=== PATIENT | female | born 1945 | race Hispanic/Latino ===

== ENCOUNTER 2018-05-21 21:59 | Emergency (ER) | payer MEDICARE, BC ==
[2018-05-21 22:03] VITALS: BMI 21.9
--- NOTE | 2018-05-21 22:37 | ED PDOC ---
Arrival/HPI - General Chief Complaint: Seizure Time Seen by Provider: 05/21/18 22:03 Historian: Patient - History of Present Illness Narrative History of Present Illness (Text): 05/21/18 22:03 Patient is a 72 year old female with a past medical history of seizure, hyperlipidemia, hypertension, A-fib, hyperthyroidism, anxiety, and bipolar disorder who presents from [facility] to the Emergency department after multiple seizures. Patient was sent by PMD for futher evaluation. The patient denies fevers, chills, headache, dizziness, chest pain, shortness of breath, dyspnea on exertion, cough, abdominal pain, nausea, vomiting, diarrhea, or any other complaint. Time/Duration: Prior to Arrival Symptom Onset: Sudden Activities at Onset: Light Context: Home (halfway) Past Medical History - Provider Review Nursing Documentation Reviewed: Yes - Infectious Disease Hx of Infectious Diseases: None - Cardiac Hx Cardiac Arrhythmia: Yes Hx Hypertension: Yes - Endocrine/Metabolic Hx Hyperthyroidism: Yes Hx Hypothyroidism: Yes - Musculoskeletal/Rheumatological Hx Osteoporosis: Yes - Psychiatric Hx Anxiety: Yes Hx Substance Use: No Family/Social History - Physician Review Nursing Documentation Reviewed: Yes Family/Social History: Unknown Family HX Smoking Status: Never Smoked Hx Alcohol Use: No Hx Substance Use: No Allergies/Home Meds Allergies/Adverse Reactions: Allergies No Known Allergies Allergy (Verified 05/21/18 22:02) Home Medications: Home Meds Medication Instructions Recorded Confirmed Brivaracetam [Briviact] 1 tab PO TID 05/21/18 05/21/18 Brivaracetam [Briviact] 100 mg PO HS 05/21/18 05/21/18 LORazepam [Ativan] 1 tab PO QID 05/21/18 05/21/18 Levothyroxine [Synthroid] 1 tab PO DAILY 05/21/18 05/21/18 OLANZapine [Zyprexa] 1 tab PO BID 05/21/18 05/21/18 Raloxifene [Evista] 1 tab PO DAILY 05/21/18 05/21/18 Rosuvastatin Calcium [Crestor] 1 tab PO HS 05/21/18 05/21/18 lamoTRIgine [Lamictal] 50 mg PO DAILY 05/21/18 05/21/18 lamoTRIgine [Lamictal] 50 mg PO HS 05/21/18 05/21/18 Review of Systems - Physician Review All systems were reviewed & negative as marked: Yes - Review of Systems Constitutional: absent: Fevers, Night Sweats Cardiovascular: absent: Chest Pain Gastrointestinal: absent: Nausea, Vomiting Neurological: Seizure Physical Exam Temperature: Afebrile Blood Pressure: Normal Pulse: Regular Respiratory Rate: Normal Appearance: Positive for: Well-Appearing, Non-Toxic, Comfortable Pain Distress: None Mental Status: Positive for: Alert and Oriented X 3 Finger Stick Blood Glucose: 96 - Systems Exam Head: Present: Atraumatic, Normocephalic Pupils: Present: PERRL Extroacular Muscles: Present: EOMI Conjunctiva: Present: Normal Mouth: Present: Moist Mucous Membranes Neck: Present: Normal Range of Motion Respiratory/Chest: Present: Clear to Auscultation, Good Air Exchange. No: Respiratory Distress, Accessory Muscle Use Cardiovascular: Present: Regular Rate and Rhythm, Normal S1, S2. No: Murmurs Abdomen: No: Tenderness, Distention, Peritoneal Signs Back: Present: Normal Inspection Upper Extremity: Present: Normal Inspection. No: Cyanosis, Edema Lower Extremity: Present: Normal Inspection. No: Edema Neurological: Present: GCS=15, CN II-XII Intact, Speech Normal Skin: Present: Warm, Dry, Normal Color. No: Rashes Psychiatric: Present: Alert, Oriented x 3, Normal Insight, Normal Concentration Medical Decision Making ED Course and Treatment: 05/21/18 22:03 Impression: Patient is a 72 year old female who presents to the Emergency department from her [facility] after seizure and altered mental status. Plan: -- CT Head W/O Contrast -- EKG -- Labs -- Reassess and disposition Prior Visits: Notes and results from previous visits were reviewed. Progress Notes: Reviewed EKG NSR [address]-segment elevations or depressions, no T-wave inversions, normal intervals. 05/22/18 00:25 CT Head: BRAIN There is mild cortical and moderate cerebellar atrophy. No evidence for mass or midline shift. No CT evidence for acute intracranial hemorrhage. VENTRICLES: No hydrocephalus. ORBITS: The orbits are unremarkable. SINUSES AND MASTOIDS: The paranasal sinuses and mastoid air cells are clear. BONES: No fracture. SOFT TISSUES: Unremarkable. MISCELLANEOUS: No CT evidence for acute territorial infarction. IMPRESSION: 1. There is mild cortical and moderate cerebellar atrophy. 2. No CT evidence for acute intracranial abnormality. Electronically signed on May 22, 2018 12:22:07 AM EST by: Hans Osei M.D., MBA Certified By [facility] Fellowship Trained MRI and CT Specialist 05/22/18 00:54 00:[address] Hernandez, who is aware and agrees with plan. Accepts patient into his service. Pt will go to Telemetry observation for seizures. 05/22/18 01:[address] Eleni Torres, who is aware and agrees with plan. Recommends increasing patient's dose of Lamictal 100 mg twice a day. - Lab Interpretations I have reviewed the lab results: Yes - RAD Interpretation Radiology Orders: 05/21/18 22:17 HEAD W/O CONTRAST [CT] Stat Bunch Trimmer Mold: Radiologist - EKG Interpretation Interpreted by ED Physician: Yes Type: 12 lead EKG - Scribe Statement The provider has reviewed the documentation as recorded by the Kimmieibe Hans oconnell with Hoa All medical record entries made by the Scribe were at my direction and personally dictated by me. I have reviewed the chart and agree that the record accurately reflects my personal performance of the history, physical exam, medical decision making, and the department course for this patient. I have also personally directed, reviewed, and agree with the discharge instructions and disposition. Disposition/Present on Arrival - Present on Arrival Any Indicators Present on Arrival: No History of DVT/PE: No History of Uncontrolled Diabetes: No Urinary Catheter: No History of Decub. Ulcer: No History Surgical Site Infection Following: None - Disposition Have Diagnosis and Disposition been Completed?: Yes Diagnosis: Seizure Disposition: HOSPITALIZED Disposition Time: 00:45 Condition: GOOD
[2018-05-21 23:26] LABS: ALB/GLOB RATIO 1.2 (1.1-1.8); ALBUMIN 3.5 g/dL (3.0-4.8); ALT/SGPT 18 U/L (7-56); AST/SGOT 23 U/L (14-36); BLOOD UREA NITROGEN 22 mg/dL (7-21); CALCIUM 8.6 mg/dL (8.4-10.5); GFR NON-AFRICAN AMERICAN > 60
[2018-05-21 23:31] LABS: BASO # 0.02 K/mm3 (0.0-2.0); BASO % 0.2 % (0.0-3.0); EOS # 0.1 (0.0-0.7); EOS % 1.3 % (1.5-5.0); HEMOGLOBIN 11.8 g/dL (12.0-16.0); LYMPH # 2.3 (1.2-3.4); LYMPH % 27.4 % (22.0-35.0); MEAN CORPUSCULAR HEMOGLOBIN 31.7 pg (25.0-35.0); MEAN CORPUSCULAR HGB CONC 32.7 g/dl (31.0-37.0); MEAN PLATELET VOLUME 9.9 fl (7.0-11.0); MONO # 1.2 (0.1-0.6); MONO % 13.5 % (1.0-6.0); RBC 3.72 10^6/uL (3.5-6.1); WHITE BLOOD COUNT 8.5 10^3/uL (4.5-11.0)
--- NOTE | 2018-05-22 09:59 | CT ---
Date of service: 05/21/2018 PROCEDURE: CT HEAD WITHOUT CONTRAST. HISTORY: seizure COMPARISON: None available. TECHNIQUE: Axial computed tomography images were obtained through the head/brain without intravenous contrast. Radiation dose: Total exam DLP = 830.34 mGy-cm. This CT exam was performed using one or more of the following dose reduction techniques: Automated exposure control, adjustment of the mA and/or kV according to patient size, and/or use of iterative reconstruction technique. FINDINGS: HEMORRHAGE: No intracranial hemorrhage. 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 Louv-kd-cltiatxs cortical volume loss. Minor chronic periventricular white matter ischemic changes VENTRICLES: No obstructive hydrocephalus. CALVARIUM: Calvarium intact PARANASAL SINUSES: Unremarkable as visualized. No significant inflammatory changes. MASTOID AIR CELLS: Unremarkable as visualized. No inflammatory changes. 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 Layf-lb-owsinfax cortical volume loss. Minor chronic periventricular white matter ischemic changes
[2018-05-22] MEDS ORDERED: Levothyroxine 75 MCG TAB PO SCH (10:00)
[2018-05-22] MEDS ORDERED: BRIVARACETAM PO SCH ×2 (10:00→14:00)
--- NOTE | 2018-05-22 11:14 | CARD ---
APPROVED REPORT Date of service: 05/21/2018 EKG Measurement Heart [id number] <Conclusion> Normal sinus rhythm Normal ECG
[2018-05-22 14:38] VITALS: BP 131/59; PULSE 75; RESP 19; TEMP 98; O2SAT 98
--- NOTE | 2018-05-22 20:45 | HP ---
DATE OF EXAM: 05/22/2018 HISTORY OF PRESENT ILLNESS: She was placed on my service at the [facility] about a week ago. In the past week, she has had 3 to 4 seizures and she had 2 yesterday. I did not know the patient well enough to try and treat her on the outpatient. Apparently, there was adjustments by her neurologist. She is still having breakthrough seizures, reported to the [facility] emergency room. She is 72-year-old white female who is having acutely multiple seizures witnessed by the nurse at the [facility]. Also she has a history of seizures, hyperlipidemia, hypertension, atrial fibrillation, hypothyroidism, anxiety, bipolar disorder. I saw her in the emergency room, she is fairly comfortable at this time, not postictal at this time. The patient is in adjustment of her medications. She is anxious. ALLERGIES: NO KNOWN DRUG ALLERGIES. MEDICATIONS: She is on Briviact, Ativan, Synthroid, Zyprexa, , Crestor, Lamictal. She might need that updated. FAMILY HISTORY: Unknown family history. SOCIAL HISTORY: No smoker. No drinking. No drugs. REVIEW OF SYSTEMS: No acute vision or hearing changes. No sore throat. No chest pain or palpitations. No nausea, vomiting, constipation, diarrhea. No shortness of breath or cough. She move all four extremities. No skin issues that she knows of. She feels well at this time. She has had seizures. PHYSICAL EXAMINATION: VITAL SIGNS: She has a 98.6 temperature, 87 pulse, 143/96 blood pressure, came down to 141/52 blood pressure, 18 respiratory rate 100% on O2 sats on room air. HEENT: At this time, head is atraumatic, normocephalic. Extraocular muscles are intact. Throat is moist. NECK: Supple. Normal range of motion. HEART: Regular rate. Normal S1, S2. LUNGS: Decreased breath sounds. Fair inspiration. No wheezes. No rhonchi. No rales. ABDOMEN: Soft, nontender. Positive bowel sounds. No guarding. No rebound or CVA tenderness. EXTREMITIES: Have no edema. She can move all four extremities. NEUROLOGIC: GCS is 50. Cranial nerves II through XII grossly intact. Speech is normal. Tongue is midline. Alert and oriented x3. SKIN: I could tell is intact. No apparent rashes or ulcers appreciated I could see. LYMPHS: Thyroid midline. No palpable appreciable lymphadenopathy. LABORATORY DATA: She had a CAT scan of the head showed no CT evidence for acute intracranial abnormality, mild cortical moderate cerebral atrophy. She had blood test. Sodium 137, potassium 3.9, BUN 22, creatinine 0.7. GFR is greater than 60, sugar is 96, calcium 8.6, magnesium is 2.2, total bili is 0.3. AST is 23, ALT is 18, alk phos 59, total protein 6.4, albumin is 3.5, globulin 2.9. White count 8.5, hemoglobin 0.8, hematocrit 36.1, platelets of 224. IMPRESSION AND PLAN: We increased Solu-Medrol to 100 mg twice a day. She is finally doing well now. She is neurologist. If she does well today, I am thinking about possibly discharging her back [facility] the [facility]. I will see if Dr. Tam wants a test to be done. I will continue aggressive treatment and care with Manisha Taylor having multiple seizures. Natanael Hernandez DO MTDSathya
[2018-05-22] MEDS ORDERED: Non Formulary Medication (Rosuvastatin Calcium [Crestor] 1 TAB) PO SCH (22:00)
[2018-05-22] MEDS ORDERED: BRIVARACETAM 100 MG PO SCH ×2 (22:00)
--- NOTE | 2018-05-22 22:17 | CON ---
DATE: 05/22/2018 HISTORY OF PRESENT ILLNESS: This is a 72-year-old white female with past medical history of hypertension, hyperlipidemia, seizure, atrial fibrillation, hypothyroidism, anxiety, bipolar disorder. The patient came here from [facility] complaining of having seizures and brought here for further evaluation. CAT scan of the head done was negative. The patient has no tongue biting, no urinary incontinence. PAST MEDICAL HISTORY: As above. SOCIAL HISTORY: Does not smoke. Does not drink. ALLERGIES: NO KNOW DRUG ALLERGIES. HOME MEDICATIONS: Synthroid, Zyprexa, Lamictal. PHYSICAL EXAMINATION: HEENT: Normocephalic, atraumatic. NECK: Supple. NEUROLOGIC: Awake, orientated to self. Cranial nerves II to XII are tested. Pupils reactive. EOM intact. Visual field full. No facial asymmetry. Tongue midline. MOTOR EXAMINATION: Moves all the extremities equally. Tone normal. Deep tendon reflexes 1+. Both plantars downgoing. Sensory appears intact. Cerebellar gait deferred. IMPRESSION: Seizure. PLAN: We will increase the Lamictal to 100 mg p.o. twice a day and workup is on the way. Continue present medications. We will followup. Mateo Tam MD
[2018-05-23] MEDS ORDERED: Levothyroxine 75 MCG TAB PO SCH (10:00)
== END 2018-05-22 14:39 | disposition home or self-care (01) ==
LOC: ED 21:59 → ERH 05-22 00:51 → UNDOADMIN 05-22 00:51
DX: R56.9 Unspecified convulsions (principal); I10 Essential (primary) hypertension; E03.9 Hypothyroidism, unspecified; I48.91 Unspecified atrial fibrillation; E78.5 Hyperlipidemia, unspecified

== ENCOUNTER 2018-07-11 07:36 | Emergency (ER) | payer MEDICARE, BC ==
[2018-07-11 07:47] VITALS: BMI 21.7
[2018-07-11 08:48] LABS: BASO # 0.01 K/mm3 (0.0-2.0); BASO % 0.2 % (0.0-3.0); EOS # 0.1 (0.0-0.7); EOS % 1.5 % (1.5-5.0); LYMPH # 2.5 (1.2-3.4); LYMPH % 42.4 % (22.0-35.0); MEAN CELL VOLUME 96.7 fl (80.0-105.0); MEAN CORPUSCULAR HEMOGLOBIN 31.3 pg (25.0-35.0); MEAN CORPUSCULAR HGB CONC 32.3 g/dl (31.0-37.0); MONO # 0.6 (0.1-0.6); MONO % 9.9 % (1.0-6.0); RBC 4.48 10^6/uL (3.5-6.1)
[2018-07-11 09:00] LABS: ALB/GLOB RATIO 1.2 (1.1-1.8); ALBUMIN 4.2 g/dL (3.0-4.8); ALT/SGPT 8 U/L (7-56); AST/SGOT 28 U/L (14-36); BLOOD UREA NITROGEN 13 mg/dL (7-21); CALCIUM 9.5 mg/dL (8.4-10.5); GFR NON-AFRICAN AMERICAN > 60
[2018-07-11 09:10] LABS: TROPONIN I < 0.01 ng/mL
--- NOTE | 2018-07-11 09:27 | RAD ---
Date of service: 07/11/2018 HISTORY: r/o infiltrate COMPARISON: No prior. TECHNIQUE: 1 view obtained. FINDINGS: LUNGS: No active pulmonary disease. PLEURA: No significant pleural effusion identified, no pneumothorax apparent. CARDIOVASCULAR: No aortic atherosclerotic calcification present. Normal cardiac size. No pulmonary vascular congestion. OSSEOUS STRUCTURES: No significant abnormalities. VISUALIZED UPPER ABDOMEN: Normal. OTHER FINDINGS: None. IMPRESSION: No active disease.
--- NOTE | 2018-07-11 09:37 | ED PDOC ---
Arrival/HPI - General Time Seen by Provider: 07/11/18 07:38 Historian: Patient - History of Present Illness Narrative History of Present Illness (Text): 07/11/18 07:38 Collins Patel is a 72 year old female, with a history of intractable seizures, sent by Sukh thomas to the emergency department for seizure-like symptoms for unknown time. Patient was able to respond to questions. Patient denies any chest pain, shortness of breath, headache, nausea, vomiting, diarrhea, fever, chills, cough, visual changes, tongue biting, bowel/bladder incontinence or head injury. Symptom Onset: Sudden Symptom Course: Resolved Activities at Onset: Light Context: Home Past Medical History - Provider Review Nursing Documentation Reviewed: Yes - Infectious Disease Hx of Infectious Diseases: None - Cardiac Hx Hypertension: Yes - Neurological Hx Seizures: Yes - Endocrine/Metabolic Hx Hyperthyroidism: Yes Hx Hypothyroidism: Yes - Musculoskeletal/Rheumatological Hx Osteoporosis: Yes - Psychiatric Hx Anxiety: Yes Hx Bipolar Disorder: Yes Hx Substance Use: No - Anesthesia Hx Anesthesia: No Family/Social History - Physician Review Nursing Documentation Reviewed: Yes Family/Social History: No Known Family HX Smoking Status: Never Smoked Hx Alcohol Use: No Hx Substance Use: No Allergies/Home Meds Allergies/Adverse Reactions: Allergies No Known Allergies Allergy (Verified 07/11/18 15:02) Home Medications: Home Meds Medication Instructions Recorded Confirmed Aspirin [Adult Aspirin] 1 tab PO DAILY 07/11/18 07/11/18 LORazepam [Ativan] 1 tab PO PRN PRN 07/11/18 07/11/18 Lamotrigine [Lamictal] 1 tab PO BID 07/11/18 07/11/18 Levothyroxine [Synthroid] 1 tab PO DAILY 07/11/18 07/11/18 Metoprolol Tartrate [Lopressor] 1 tab PO BID 07/11/18 07/11/18 OLANZapine [Zyprexa] 1 tab PO BID 07/11/18 07/11/18 Raloxifene [Evista] 1 tab PO DAILY 07/11/18 07/11/18 Rosuvastatin Calcium [Crestor] 1 tab PO HS 07/11/18 07/11/18 lamoTRIgine [Lamictal] 1 tab PO DAILY 07/11/18 07/11/18 levETIRAcetam [Keppra] 4 tab PO TID 07/11/18 07/11/18 Review of Systems - Physician Review All systems were reviewed & negative as marked: Yes - Review of Systems Constitutional: absent: Fevers, Other (chills) Eyes: absent: Vision Changes ENT: absent: Other (tongue biting) Respiratory: absent: SOB, Cough Cardiovascular: absent: Chest Pain Gastrointestinal: absent: Diarrhea, Nausea, Vomiting, Other (bowel incontinence) Genitourinary Female: absent: Other (bladder incontinence) Musculoskeletal: absent: Other (head injury) Neurological: absent: Headache Physical Exam Vital Signs Reviewed: Yes Temperature: Afebrile Blood Pressure: Hypertensive Pulse: Regular Respiratory Rate: Normal Appearance: Positive for: Well-Appearing, Non-Toxic, Comfortable Pain Distress: None Mental Status: Positive for: Alert and Oriented X 3 - Systems Exam Head: Present: Atraumatic, Normocephalic Pupils: Present: PERRL Extroacular Muscles: Present: EOMI Conjunctiva: Present: Normal Mouth: Present: Moist Mucous Membranes, Normal Tounge Neck: Present: Normal Range of Motion Respiratory/Chest: Present: Clear to Auscultation, Good Air Exchange. No: Respiratory Distress, Accessory Muscle Use Cardiovascular: Present: Regular Rate and Rhythm, Normal S1, S2. No: Murmurs Abdomen: No: Tenderness, Distention, Peritoneal Signs Rectal: No: Other (no bowel incontinence) Genitourinary/Pelvic Exam: No: Other (no urinary incontinence) Back: Present: Normal Inspection Upper Extremity: Present: Normal Inspection. No: Cyanosis, Edema Lower Extremity: Present: Normal Inspection. No: Edema Neurological: Present: GCS=15, CN II-XII Intact, Speech Normal Skin: Present: Warm, Dry, Normal Color. No: Rashes Psychiatric: Present: Alert, Oriented x 3, Normal Insight, Normal Concentration Medical Decision Making ED Course and Treatment: 07/11/18 09:39 Impression: Patient is a 72 year old female brought by [facility] to the emergency department for seizure like symptoms since an unknown time. Patient denies fever or vomiting. Exam is unremarkable. Plan: -- EKG -- Chest X-Ray -- Urine Culture -- Urinalysis -- Urinary Cath -- Labs -- Reassess and disposition Prior Visits: Notes and results from previous visits were reviewed. Progress Notes: 07/11/18 09:[address] Hernandez. Pt to return to halfway and medications will be adjusted. - Lab Interpretations Lab Results: Troponin I < 0.01 ng/mL 07/11/18 08:04 Total Bilirubin 0.5 mg/dL (0.2-1.3) 07/11/18 08:04 AST 28 U/L (14-36) 07/11/18 08:04 ALT 8 U/L (7-56) 07/11/18 08:04 Alkaline Phosphatase 64 U/L (38-126) 07/11/18 08:04 Total Protein 7.9 g/dL (5.8-8.3) 07/11/18 08:04 Albumin 4.2 g/dL (3.0-4.8) 07/11/18 08:04 Globulin 3.6 gm/dL 07/11/18 08:04 Albumin/Globulin Ratio 1.2 (1.1-1.8) 07/11/18 08:04 - RAD Interpretation Narrative RAD Interpretations (Text): 07/11/18 09:23 Reviewed Chest X-Ray, shows: FINDINGS: LUNGS: No active pulmonary disease. PLEURA: No significant pleural effusion identified, no pneumothorax apparent. CARDIOVASCULAR: No aortic atherosclerotic calcification present. Normal cardiac size. No pulmonary vascular congestion. OSSEOUS STRUCTURES: No significant abnormalities. VISUALIZED UPPER ABDOMEN: Normal. OTHER FINDINGS: None. IMPRESSION: No active disease. Radiology Orders: 07/11/18 07:48 CHEST PORTABLE [RAD] Stat Junior Automation Engineer: Radiologist - Scribe Statement The provider has reviewed the documentation as recorded by the Scribe Hans Paula All medical record entries made by the Kimmieibben were at my direction and personally dictated by me. I have reviewed the chart and agree that the record accurately reflects my personal performance of the history, physical exam, medical decision making, and the department course for this patient. I have also personally directed, reviewed, and agree with the discharge instructions and disposition. Disposition/Present on Arrival - Present on Arrival Any Indicators Present on Arrival: No History of DVT/PE: No History of Uncontrolled Diabetes: No Urinary Catheter: No History Surgical Site Infection Following: None - Disposition Have Diagnosis and Disposition been Completed?: Yes Diagnosis: Seizure Disposition: HOME/ ROUTINE Disposition Time: 09:20 Condition: GOOD Discharge Instructions (ExitCare): Seizures, Adult (DC) Additional Instructions: COLLINS PATEL, thank you for letting us take care of you today. The emergency medical care you received today was directed at your acute symptoms. If you were prescribed any medication, please fill it and take as directed. It may take several days for your symptoms to resolve. Return to the Emergency Department if your symptoms worsen, do not improve, or if you have any other problems. Please contact your doctor or call one of the physicians/clinics you have been referred to that are listed on the Patient Visit Information form that is included in your discharge packet. Bring any paperwork you were given at discharge with you along with any medications you are taking to your follow up visit. Our treatment cannot replace ongoing medical care by a primary care provider outside of the emergency department. Thank you for allowing the [facility] team to be part of your care today. Dr. Hernandez will follow up with the patient this week and will adjust her medication. Referrals: Natanael Hernandez, DO [Primary Care Provider] - Follow up with primary Forms: [employer] (Citizen Of [place])
--- NOTE | 2018-07-11 09:40 | CARD ---
APPROVED REPORT Date of service: 07/11/2018 EKG Measurement Heart [id number] <Conclusion> Normal sinus rhythm Normal ECG
[2018-07-11 09:43] VITALS: TEMP 98.6
[2018-07-11 11:38] VITALS: BP 143/72; PULSE 72; RESP 17; O2SAT 97
== END 2018-07-11 11:37 | disposition home or self-care (01) ==
LOC: ED 07:36
DX: R56.9 Unspecified convulsions (principal); I10 Essential (primary) hypertension

== ENCOUNTER 2018-07-11 14:57 | Observation (INO) | payer MEDICARE, BC ==
[2018-07-11 14:58] VITALS: BMI 21.7
--- NOTE | 2018-07-11 15:25 | ED PDOC ---
Arrival/HPI - General Chief Complaint: Seizure Historian: Patient - History of Present Illness Narrative History of Present Illness (Text): 07/11/18 15:24 Manisha Taylor is a 72 year old female, with a history of intractable seizures, who returns to the emergency department sent by the [facility] for possible seizure-like behavior for unknown time. Patient was given Ativan 1mg by mouth prior to arrival. Patient is resting comfortably in the ER with no seizure-like movements noted. Patient denies any vomiting, chest pain, shortness of breath, headache, nausea, vomiting, diarrhea, fever, chills, cough, visual changes, tongue biting, bowel/bladder incontinence or head injury. Symptom Onset: Sudden Symptom Course: Resolved Activities at Onset: Light Context: Home Past Medical History - Provider Review Nursing Documentation Reviewed: Yes - Infectious Disease Hx of Infectious Diseases: None - Cardiac Hx Hypertension: Yes - Neurological Hx Seizures: Yes - Endocrine/Metabolic Hx Hyperthyroidism: Yes Hx Hypothyroidism: Yes - Musculoskeletal/Rheumatological Hx Osteoporosis: Yes - Psychiatric Hx Anxiety: Yes Hx Bipolar Disorder: Yes Hx Substance Use: No - Anesthesia Hx Anesthesia: No Family/Social History - Physician Review Nursing Documentation Reviewed: Yes Family/Social History: Unknown Family HX Smoking Status: Never Smoked Hx Alcohol Use: No Hx Substance Use: No Allergies/Home Meds Allergies/Adverse Reactions: Allergies No Known Allergies Allergy (Verified 07/11/18 15:02) Home Medications: Home Meds Medication Instructions Recorded Confirmed Aspirin [Adult Aspirin] 1 tab PO DAILY 07/11/18 07/11/18 LORazepam [Ativan] 1 tab PO PRN PRN 07/11/18 07/11/18 Lamotrigine [Lamictal] 1 tab PO BID 07/11/18 07/11/18 Levothyroxine [Synthroid] 1 tab PO DAILY 07/11/18 07/11/18 Metoprolol Tartrate [Lopressor] 1 tab PO BID 07/11/18 07/11/18 OLANZapine [Zyprexa] 1 tab PO BID 07/11/18 07/11/18 Raloxifene [Evista] 1 tab PO DAILY 07/11/18 07/11/18 Rosuvastatin Calcium [Crestor] 1 tab PO HS 07/11/18 07/11/18 lamoTRIgine [Lamictal] 1 tab PO DAILY 07/11/18 07/11/18 levETIRAcetam [Keppra] 4 tab PO TID 07/11/18 07/11/18 Review of Systems - Physician Review All systems were reviewed & negative as marked: Yes - Review of Systems Constitutional: absent: Fevers, Other (chills) Eyes: absent: Vision Changes ENT: absent: Other (tongue biting) Respiratory: absent: SOB, Cough Cardiovascular: absent: Chest Pain Gastrointestinal: absent: Diarrhea, Nausea, Vomiting, Other (bowel incontinence) Genitourinary Female: absent: Other (bladder incontinence) Musculoskeletal: absent: Other (head injury) Neurological: absent: Headache Physical Exam - Systems Exam Head: Present: Atraumatic, Normocephalic Pupils: Present: PERRL Extroacular Muscles: Present: EOMI Conjunctiva: Present: Normal Mouth: Present: Moist Mucous Membranes Neck: Present: Normal Range of Motion Respiratory/Chest: Present: Clear to Auscultation, Good Air Exchange. No: Respiratory Distress, Accessory Muscle Use Cardiovascular: Present: Regular Rate and Rhythm, Normal S1, S2. No: Murmurs Abdomen: No: Tenderness, Distention, Peritoneal Signs Back: Present: Normal Inspection Upper Extremity: Present: Normal Inspection. No: Cyanosis, Edema Lower Extremity: Present: Normal Inspection. No: Edema Neurological: Present: GCS=15, CN II-XII Intact, Speech Normal Skin: Present: Warm, Dry, Normal Color. No: Rashes Psychiatric: Present: Alert, Oriented x 3, Normal Insight, Normal Concentration Medical Decision Making ED Course and Treatment: 07/11/18 15:24 Impression: Patient is a 72 year old female brought by EMS from the [facility] for possible seizure like behavior since an unknown time. Patient does not display any seizure like movements in the emergency department. Patient was sent to the emergency department for similar complaints earlier today. Plan: -- Reassess and disposition Prior Visits: Notes and results from previous visits were reviewed. Progress Notes: 07/11/18 15:37 Discussed case w/Dr. Hernandez, who states that workup from previous visit earlier today is sufficient. Patient will be admitted to telemetry observation. Consult per Dr. Hernandez. - EKG Interpretation EKG Interpretation (Text): 07/11/18 15:37 Reviewed EKG, shows: NSR at 75 BPM. Normal axis and intervals. Interpreted by ED Physician: Yes Type: 12 lead EKG - Scribe Statement The provider has reviewed the documentation as recorded by the Scribe Hans Palua All medical record entries made by the Scribe were at my direction and personally dictated by me. I have reviewed the chart and agree that the record accurately reflects my personal performance of the history, physical exam, medical decision making, and the department course for this patient. I have also personally directed, reviewed, and agree with the discharge instructions and disposition. Disposition/Present on Arrival - Present on Arrival Any Indicators Present on Arrival: No History of DVT/PE: No History of Uncontrolled Diabetes: No Urinary Catheter: No History of Decub. Ulcer: No History Surgical Site Infection Following: None - Disposition Have Diagnosis and Disposition been Completed?: Yes Diagnosis: Seizure Disposition: HOSPITALIZED Disposition Time: 15:10 Condition: STABLE
--- NOTE | 2018-07-11 16:46 | CARD ---
APPROVED REPORT Date of service: 07/11/2018 EKG Measurement Heart [id number] <Conclusion> Normal sinus rhythm Normal ECG
--- NOTE | 2018-07-12 02:43 | HP ---
DATE OF EXAM: 07/11/2018 HISTORY OF PRESENT ILLNESS: Manisha had a interesting day today, she is 72 years old, who had seizure again, in spite of having medications increased to Keppra 1000 mg three times a day and Lamictal 150 mg three times a day and she is still having seizures at the [facility], so we sent her to the hospital this morning where she did very well with Ativan and we sent her back to the [facility] where she began to have intractable seizures again. So we sent her back to the emergency room again because her seizure like activity continued despite the Ativan that was given. She is very much in and out of it mentally at this time. It has been coming and going now pretty steadily for the past 24 hours. PAST MEDICAL HISTORY: She has a history of hypertension, seizures, osteoporosis, hypothyroid, anxiety, and bipolar. FAMILY HISTORY: Unknown. SOCIAL HISTORY: Nonsmoker. Nondrinker. No drugs. ALLERGIES: NO KNOWN DRUG ALLERGIES. MEDICATIONS: Aspirin, Ativan, Lamictal 150 mg twice a day, Synthroid daily, Lopressor b.i.d., Zyprexa b.i.d., Evista daily, Crestor daily, Lamictal once in the afternoon and Keppra 1000 mg three times a day. REVIEW OF SYSTEMS: Lethargic after the Ativan. No acute vision changes. No tongue biting. No apparent shortness of breath or cough. No chest pain. No issues with bowels. No diarrhea, nausea, or vomiting. No head injury. No headache. PHYSICAL EXAMINATION VITAL SIGNS: Temperature 97.6, pulse 78, blood pressure 133/78, respiratory rate 18, and O2 sat 99%. HEENT: Head is atraumatic and normocephalic. Extraocular muscles are intact. Pupils are equal and reactive to light at this time. Throat moist. NECK: Supple. HEART: Regular rate. Normal S1 and S2. LUNGS: Decreased breath sounds, but clear to auscultation. ABDOMEN: Soft and nontender. Positive bowel sounds. EXTREMITIES: No edema. NEUROLOGIC: GCS of 15. Cranial nerves II through XII grossly intact, but she is not seizure. Alert. LABORATORY DATA: She had some tests done, she had a blood sugar of 82. An EKG normal sinus rhythm. IMPRESSION AND PLAN: The patient had consults with Cardiology, Neurology, and Psychiatry. Not sure if it is true seizure activity or has anxiety. It has been going on for 24 to 36 hours despite the medications. She will be on Ativan 2 mg IV every 4 hours p.r.n., Ecotrin, Evista, Keppra, Lamictal, Lopressor, Crestor, Synthroid and Tylenol. done this with neurology evaluation. She will probably need an EEG and further studies. Natanael Hernandez DO MTDSathya
[2018-07-12 06:43] LABS: HEMOGLOBIN 14.2 g/dL (12.0-16.0); MEAN CELL VOLUME 97.1 fl (80.0-105.0); MEAN CORPUSCULAR HEMOGLOBIN 31.7 pg (25.0-35.0); MEAN CORPUSCULAR HGB CONC 32.6 g/dl (31.0-37.0); MEAN PLATELET VOLUME 9.7 fl (7.0-11.0); RBC 4.48 10^6/uL (3.5-6.1); RED CELL DISTRIBUTION WIDTH 12.9 % (11.5-14.5); WHITE BLOOD COUNT 5.2 10^3/uL (4.5-11.0)
[2018-07-12 07:13] LABS: ALB/GLOB RATIO 1.1 (1.1-1.8); ALBUMIN 3.7 g/dL (3.0-4.8); ALT/SGPT 11 U/L (7-56); AST/SGOT 27 U/L (14-36); BLOOD UREA NITROGEN 15 mg/dL (7-21); CALCIUM 9.4 mg/dL (8.4-10.5); GFR NON-AFRICAN AMERICAN > 60
[2018-07-12] MEDS: Levothyroxine 75 MCG TAB PO SCH (07:42)
[2018-07-12] MEDS ORDERED: LAMOTRIGINE PO SCH (10:00)
--- NOTE | 2018-07-12 12:31 | CARD ---
APPROVED REPORT Date of service: 07/11/2018 EKG Measurement Heart [id number] <Conclusion> Normal sinus rhythm Possible Left atrial enlargement Borderline ECG
--- NOTE | 2018-07-12 13:01 | CON ---
DATE: 07/12/2018 CARDIOLOGY CONSULTATION HISTORY: The patient is a 72-year-old woman with history of recurrent seizures, who had another syncopal episode secondary to seizures. PAST MEDICAL HISTORY: The patient's past medical history is notable for bipolar disease, is currently on statin for hypercholesterolemia. While she was walking, she was found to have desaturation on the pulse oximetry currently, at rest is normal. She denies heart disease, negative angina. SOCIAL HISTORY: The patient does not smoke. REVIEW OF SYSTEMS: Free of all cardiac symptoms. PHYSICAL EXAMINATION: VITAL SIGNS: Blood pressure 124/75, heart rates in the 70s. NECK: Negative JVD. LUNGS: Without rales. HEART: Reveal S1, S2. EXTREMITIES: Without edema. EKG is within normal limits. BUN and creatinine is unremarkable. Hemoglobin is normal. Troponins are negative x1. IMPRESSION: 1. Syncope secondary to seizures. 2. Hypercholesterolemia. 3. History of bipolar disease. 4. Questionable desaturation during exercise. Given these findings, there is no cardiac cause of her syncope or seizures noted; however, her desaturation would require us to look at her LV function. We will obtain an echocardiogram to rule out pulmonary hypertension and evaluate her LV function. Sb Allen MD
--- NOTE | 2018-07-12 13:42 | PN ---
DATE: 07/12/2018 SUBJECTIVE: She is resting comfortably in bed. She slept well. No seizure activity all night, what I understand. She is alert, talking, calm, hungry, back to her baseline. MEDICATIONS: Ecotrin, Evista, Keppra 1000 three times a day. Lamictal 150 mg three times a day, I will change that, it is wrong in the chart. Lipitor, metoprolol, Synthroid, and Tylenol. Nobody saw the patient yet. There are consults for Psychiatry to rule out anxiety versus seizure, Neurology, and Cardiology. I will order an EEG, nobody ordered yet, I am trying to save time as far as stay in the hospital. PHYSICAL EXAMINATION: VITAL SIGNS: She has 97 temperature, 70 pulse, 124/75 blood pressure, 20 respiratory rate, 90% O2 sat on room air. HEAD: Atraumatic, normocephalic. HEART: Regular rate. LUNGS: Decreased breath sounds, but clear. ABDOMEN: Soft. EXTREMITIES: No edema. NEUROLOGIC: She is talking, she is hungry, she is back to her baseline. LABORATORY DATA: Sodium 140, potassium 4, BUN 15, creatinine 0.6, GFR is greater than 60, sugar is 77, calcium is 9.4. Total bili is 0.5, AST is 27, ALT is 11, alk phos 59, total protein 7.2. White count 5.2, hemoglobin 14.2, hematocrit 42.5, platelets of 201. ASSESSMENT AND PLAN: I do not think she is going to be discharged today. There is no consult that has seen her yet. I will order an electroencephalogram to get things started. I will change her Lamictal , it is wrong and hopefully in the next 24 hours, we can make a decision on how to keep her from being seizure seizures for at least 36 to 48 hours straight, in the last 12 hours I did not see any seizures. Hopefully, she will continue that. Wait for consults, check her labs, physical therapy, and out of bed. Natanael Hernandez DO DEDRA
--- NOTE | 2018-07-12 20:28 | CON ---
DATE OF CONSULTATION: 07/12/2018 HISTORY OF PRESENT ILLNESS: In short, the patient is a 72-year-old female with history of seizure disorder. The patient was sent by a [facility] for possible seizure-like behavior. Psych consult was called to rule out pseudoseizures. The patient was seen and examined today. The patient presented to be alert. The patient reported that she has memory problems and she is not aware what medication she is taking. The patient reported that she has long history of seizure disorder. The patient reported that her this summer, but she is not sure. The patient reported that right now her family is looking for assisted living for her. The patient reported that she lives in [place] independently. This publicity writer is not sure if [facility] is long term or she was there for subacute rehab. The patient denied feeling depressed. Denied feeling of hopelessness or helplessness. The patient denied thoughts of harming herself or others. Insight, the patient also denied visual hallucinations. Denied auditory hallucinations. Denied paranoia. The patient does not appear to be psychotic. PHYSICAL EXAMINATION: VITAL SIGNS: Reviewed. Temperature 98, pulse is 80, blood pressure 108/67, respirations 26, and oxygen saturation is 90. MEDICATIONS: Reviewed. The patient is on aspirin, Lipitor, Lamictal, Keppra, Synthroid, Lopressor, and Evista. LABORATORY DATA: Labs reviewed. Chemistry reviewed. MENTAL STATUS EXAMINATION: The patient presented to be alert, acceptable personal hygiene. Mood described as okay. Affect was constricted. Thought process concrete. Thought content, the patient denied visual, auditory, or tactile hallucinations and paranoid ideation. The patient does not appear to be psychotic. Insight and judgment seemed to be limited, but impulses are well controlled. IMPRESSION: Rule out cognitive deficit due to general medical condition such as seizure. The patient had long history of seizures, and this publicity writer is not sure if the patient has pseudoseizures. This is diagnosed of exclusion, but the patient had well-documented history of seizure disorder. PLAN: Continue antiseizure medication. Continue current management with physical therapy. Neurology should be involved. Medications need to be adjusted from the neurological standpoint. From the psychiatric standpoint, the patient is not psychotic, not depressed, not hopeless, not helpless. No imminent danger to self or others. This publicity writer will sign off. Should you have any questions give me a call back Hannah Gomez MD
--- NOTE | 2018-07-12 23:00 | CON ---
DATE: 07/12/2018 HISTORY OF PRESENT ILLNESS: This is a 72-year-old female who came with a seizure and the patient has been taking Lamictal and Keppra. She lives in the shelter and came to the emergency room and the patient is getting EEG. PAST MEDICAL HISTORY: Hypertension, seizure, osteoporosis, hypothyroid and bipolar. ALLERGIES: NO KNOWN DRUG ALLERGIES. HOME MEDICATIONS: Keppra, Lamictal, aspirin, Ativan, Synthroid and Lopressor. REVIEW OF SYSTEMS: A 10-point review of systems was negative. PHYSICAL EXAMINATION: HEENT: Normocephalic and atraumatic. NECK: Supple. NEUROLOGIC: Alert with oriented x3. No aphasia. Cranial nerves II to XII are tested. Pupils reactive. EOM intact. Visual field full. No facial asymmetry. Tongue midline. Motor examination; the patient moves all the extremities spontaneously. Deep tendon reflexes 1+. Both plantars are downgoing. Sensory appears intact. Cerebellar gait deferred. IMPRESSION AND PLAN: Breakthrough seizure and workup in progress. We will get the report for EEG and further management after results of above test. CAT scan on 07/02/2018 was unremarkable, only microvascular changes were noted. Continue present management. We will follow up. Mateo Tam MD
[2018-07-13 05:33] VITALS: O2SAT 97
[2018-07-13 06:25] LABS: HEMOGLOBIN 14.3 g/dL (12.0-16.0); MEAN CELL VOLUME 96.7 fl (80.0-105.0); MEAN CORPUSCULAR HGB CONC 32.1 g/dl (31.0-37.0); MEAN PLATELET VOLUME 9.8 fl (7.0-11.0); RBC 4.61 10^6/uL (3.5-6.1)
[2018-07-13 07:15] LABS: ALB/GLOB RATIO 1.1 (1.1-1.8); ALBUMIN 3.8 g/dL (3.0-4.8); ALT/SGPT 12 U/L (7-56); AST/SGOT 24 U/L (14-36); BLOOD UREA NITROGEN 19 mg/dL (7-21); CALCIUM 9.3 mg/dL (8.4-10.5); GFR NON-AFRICAN AMERICAN > 60
[2018-07-13] MEDS: Levothyroxine 75 MCG TAB PO SCH (08:35)
--- NOTE | 2018-07-13 08:55 | PCM.EEG ---
Electroencephalogram Report - Electroencephalogram Report Procedure Date: 07/12/18 Medication: Lipitor, keppra, Lamictal Interpretation: Technical Information: This was a 16 -channel EEG, 1-channel EKG routine EEG performed using an [employer] machine. Electrodes were applied using the 10/20 international placement system. Start; 12;08 End; 12;54 Clinical Information: Epilepsy During resting wakefulness there was a symmetric posterior dominant rhythm at 8. 5-9.5 Hz, 30-50 uV, which was reactive to eye opening and closing. Drowsiness not seen Sleep not seen Hyperventilation was not performed. Photic stimulation was performed and there were no changes on the record. Focal abnormality; none ECG was associated with a normal sinus rhythm. Impression: This is a normal awake electroencephalogram.
--- NOTE | 2018-07-13 09:02 | PCM.VEEG ---
Video EEG - Procedure Start Date: 07/12/18 Start Time: 16:05 End Date: 07/13/18 End Time: 07:25 Technical Summary: DATA ACQUISITION: This was a multichannel inpatient video-EEG, a minimum of 22 channels were uti lized, performed in accordance with recommendations specified by the [place] [employer]phys[employer] Society (Tyler House et al. ACNS Guideline 1: Minimum Technical Requirements for Performing Clinical Electroencephalography. Journal of Clinical Neurophysiology 2016;33:303-7). The 10-20 electrode placement system was utilized in accordance with guidelines detailed by the International Federation of Clinical Neurophysiology (Ady Verma et al. The Ten-Twenty Electrode System of the International Federation. Recommendations for the Practice of Clinical Neurophysiology: Guidelines of the International Federation of Clinical Physiology 1999; EEG Suppl. 52.). DATA REVIEW / SPIKE DETECTION / DIGITAL ANALYSIS: The entire EEG was scanned and reviewed. Synchronized audio and video recording were reviewed at the time of each alarm and whenever an abnormality or suspicious activity was noted. The entire recording was analyzed utilizing an automated digital spike and seizure analysis program and all automatic spike and seizure detections were manually reviewed. A compressed spectral array was displayed and reviewed alongside the raw EEG tracings. In addition, further analysis of the EEG was performed when abnormalities were identified, including montage changes, dipole source localization, and frequency band identification. This study was attended 24 hours per day. - Interpretation Description of the study: Indication; Epilepsy EEG Finding during wakefulness: During active states, the EEG was characterized by 10-20 Hz, 15-30 uV activity bilaterally in fronto-central regions, with slightly slower frequencies and higher amplitudes emerging on the right. Resting wakefulness was characterized by a symmetric posterior dominant rhythm of 8-9 Hz, 30-50 uV, which was reactive to eye opening and closing, with greater amplitudes on the right. Drowsiness was associated with slow roving eye movements, slowing and fragmentation of the posterior dominant rhythm, and bilateral 4-7 Hz, 40-70 uV theta activity, sometimes with a shifting predominance. EEG Finding during sleep: Light sleep was recorded and was characterized by fronto-central slowing at 5-7 H, 50-125 uV, sharp central vertex waves, bilateral sleep spindles, and K- complexes; shifting asymmetries were evident. Deeper stages of sleep were recorded and were characterized an increasing frequency of 1-4 Hz, 50-100 uV delta activity. REM sleep was also recorded and was characterized by mixed frequency (3-15 Hz) low voltage (< 20 uV) activity with clusters of rapid horizontal and vertical eye movements Interictal non-epileptiform abnormalities: right temporal intermittent slowing at 4 Hz, was seen that was more evident during drowsiness and sleep. Interictal epileptiform abnormalities: Frequent right temporal sharps and spikes were seen maximally at F8, that were superimposed to the above mentioned slowing. In isolation or in runs. Ictal epileptiform abnormalities: No seizures - Impression Impression: This is an abnormal video-EEG monitoring study due to the presence of 1- Right temporal interictal activity max at F8. 2- Right temporal focal slowing. 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 The findings are also in keeping with a focal cortical abnormality involving the right temporal area.
[2018-07-13 12:44] VITALS: BP 145/77; PULSE 62; RESP 18; TEMP 97.8
--- NOTE | 2018-07-13 15:17 | PN ---
DATE: 07/13/2018 SUBJECTIVE: The patient is in bed. No issues. OBJECTIVE: VITAL SIGNS: Blood pressure is 145/77, heart rates in the 60s. NECK: Negative JVD. LUNGS: Without rales. HEART: S1, S2. EXTREMITIES: Without edema. LABORATORY DATA: Hemoglobin is 14.3, BUN and creatinine unremarkable. IMPRESSION: 1. History of seizures. 2. Syncope likely due to seizures. 3. No documented EEG evidence for seizures at this time. Given these findings, there is no further cardiac workup is necessary. Sb Allen MD
--- NOTE | 2018-07-13 15:20 | CON ---
DATE: 07/13/2018 HISTORY OF PRESENT ILLNESS: A 72-year-old who came with a seizure and EEG shows abnormal and the patient is on Lamictal and Keppra. PAST MEDICAL HISTORY: Hypertension, seizure, hypothyroid and bipolar. PHYSICAL EXAMINATION: NEUROLOGIC: Awake and oriented to self. Cranial nerves II through XII were tested. Spontaneous movement of the extremities noted. Deep tendon reflexes 1+. Plantars are downgoing. Sensory appears intact. Cerebellar gait deferred. IMPRESSION: Breakthrough seizure and continue present management and we will followup. Mtaeo Tam MD
--- NOTE | 2018-07-13 22:56 | DS ---
HOSPITAL COURSE: She is currently having a 24-hour EEG being done by Neurology, should be finished at 2 p.m. this afternoon. She is stable. She has not had a seizure since she has been in the hospital this visit. Before this, she had 36 hours of pretty much straight seizures. She is eating well, in good spirits. She ambulates 60 feet with a rolling walker, I'm going to get her back to the [facility]. She is on Ecotrin,Evista, Keppra, Lamictal, Lipitor, Lopressor, and Synthroid. PHYSICAL EXAMINATION VITAL SIGNS: She has a 98.2 temperature, 74 pulse, 124/68 blood pressure, 20 respiratory rate, and 97% O2 saturation on room air. HEENT: Head is atraumatic and normocephalic. HEART: Regular rate. LUNGS: Decreased breath sounds, but clear. ABDOMEN: Soft. EXTREMITIES: No edema. LABORATORY DATA: She has a 141 sodium, potassium 4, BUN 19, creatinine 0.7, GFR is greater than 60, sugar is 82, and calcium is 9.3. Total bili is 0.4, AST is 24, ALT is 12, alk phos 57, total protein 7.2, and albumin is 3.8. White count is 6, hemoglobin 14.3, hematocrit 44.6, and platelets of 199. ASSESSMENT AND PLAN: She is being seen by Neurology, Psychiatry, and Cardiology. We will wait and see what the EEG has had to say and hoping we could discharge her later today, and we will see how Neurology if wants to change her medications, but right now, she has been seizure free for about 36 to 48 hours. I am hoping she will continue that. I will get her back to the [facility] later today. She was here for breakfast. Natanael Hernandez DO
== END 2018-07-13 16:27 ==
LOC: ED 14:57 → ERH 15:08 → 2RNO 20:30
PROVIDERS: ADMIT Family Medicine; ATTEND Family Medicine
DX: G40.919 Epilepsy, unspecified, intractable, without status epilepticus (principal); E03.9 Hypothyroidism, unspecified; E78.00 Pure hypercholesterolemia, unspecified; I10 Essential (primary) hypertension; F31.9 Bipolar disorder, unspecified; F41.9 Anxiety disorder, unspecified; M81.0 Age-related osteoporosis without current pathological fracture; Z79.82 Long term (current) use of aspirin
CPT/HCPCS: 36415; 80053; 82948; 85027; 93005; 97162; 99285; G0378; G8978; G8979

== ENCOUNTER 2018-07-14 22:17 | Observation (INO) | payer MEDICARE, BC ==
[2018-07-14 22:20] VITALS: BMI 22.3
--- NOTE | 2018-07-14 23:09 | ED PDOC ---
Arrival/HPI - General Chief Complaint: Seizure Time Seen by Provider: 07/14/18 22:24 Historian: Patient - History of Present Illness Narrative History of Present Illness (Text): 07/14/18 22:55 72 year old female, whose past medical history includes Seizure disorder, hypertension, bipolar disorder, [facility] evaluation of recurrent Seizure activity. Patient apparently had a Seizure in her [facility]ent[facility] and en-route to ER of which EMS administered IV Ativan to control Seizure. Patient is currently mildly post-ictal, but is awake and responsive. She was recently discharged yesterday from hospital having been admitted for breakthrough Seizure activity. Patient Seizure medication was increased to Keppra 1g TID and Lamictal 150mg TID. Patient denies any fevers, chills, chest pain, shortness of breath, abdominal pain, nausea, vomiting, diarrhea, back pain, neck pain, urinary symptoms, headache, dizziness, or any other complaint. PMD: Dr. Hernandez Symptom Onset: Sudden Activities at Onset: Light Context: Home (penitentiary) Past Medical History - Provider Review Nursing Documentation Reviewed: Yes - Infectious Disease Hx of Infectious Diseases: None - Cardiac Hx Hypertension: Yes - Neurological Hx Seizures: Yes - Endocrine/Metabolic Hx Hypothyroidism: Yes - Musculoskeletal/Rheumatological Hx Falls: Yes Hx Osteoporosis: Yes - Psychiatric Hx Anxiety: Yes Hx Bipolar Disorder: Yes Hx Substance Use: No - Anesthesia Hx Anesthesia: No Family/Social History - Physician Review Nursing Documentation Reviewed: Yes Family/Social History: No Known Family HX Smoking Status: Never Smoked Hx Alcohol Use: No Hx Substance Use: No Allergies/Home Meds Allergies/Adverse Reactions: Allergies No Known Allergies Allergy (Verified 07/11/18 15:02) Home Medications: Home Meds Medication Instructions Recorded Confirmed Aspirin [Adult Aspirin] 1 tab PO DAILY 07/11/18 07/13/18 LORazepam [Ativan] 1 tab PO PRN PRN 07/11/18 07/11/18 Lamotrigine [Lamictal] 1 tab PO TID 07/11/18 07/13/18 Levothyroxine [Synthroid] 1 tab PO DAILY 07/11/18 07/13/18 Metoprolol Tartrate [Lopressor] 1 tab PO BID 07/11/18 07/13/18 OLANZapine [Zyprexa] 1 tab PO BID 07/11/18 07/13/18 Raloxifene [Evista] 1 tab PO DAILY 07/11/18 07/13/18 Rosuvastatin Calcium [Crestor] 1 tab PO HS 07/11/18 07/13/18 levETIRAcetam [Keppra] 4 tab PO TID 07/11/18 07/13/18 Review of Systems - Physician Review All systems were reviewed & negative as marked: Yes - Review of Systems Constitutional: absent: Fevers, Other (chills) Respiratory: absent: SOB Cardiovascular: absent: Chest Pain Gastrointestinal: absent: Abdominal Pain, Diarrhea, Nausea, Vomiting Genitourinary Female: absent: Dysuria, Frequency, Hematuria Musculoskeletal: absent: Back Pain, Neck Pain Neurological: Seizure. absent: Headache, Dizziness Physical Exam Vital Signs Reviewed: Yes Vital Signs Temp Pulse Resp BP Pulse Ox 07/14/18 22:49 97.9 F 80 16 123/71 100 Temperature: Afebrile Blood Pressure: Normal Pulse: Regular Respiratory Rate: Normal Appearance: Positive for: Well-Appearing, Non-Toxic, Comfortable Pain Distress: None Mental Status: Positive for: Alert and Oriented X 3 (mildly post-ictal) - Systems Exam Head: Present: Atraumatic, Normocephalic Pupils: Present: PERRL Extroacular Muscles: Present: EOMI Conjunctiva: Present: Normal Ears: Present: NORMAL TM Mouth: Present: Moist Mucous Membranes Neck: Present: Normal Range of Motion Respiratory/Chest: Present: Clear to Auscultation, Good Air Exchange. No: Respiratory Distress, Accessory Muscle Use Cardiovascular: Present: Regular Rate and Rhythm, Normal S1, S2. No: Murmurs Abdomen: No: Tenderness, Distention, Peritoneal Signs Back: Present: Normal Inspection Upper Extremity: Present: Normal Inspection. No: Cyanosis, Edema Lower Extremity: Present: Normal Inspection. No: Edema Neurological: Present: GCS=15, CN II-XII Intact, Speech Normal, Motor Func Grossly Intact, Normal Sensory Function Skin: Present: Warm, Dry, Normal Color. No: Rashes Psychiatric: Present: Alert, Oriented x 3, Normal Insight, Normal Concentration Medical Decision Making ED Course and Treatment: 07/14/18 22:50 Impression: 72 year old female presents for evaluation of recurrent Seizure activity. Patient recently discharged with increase of Seizure medication Keppra 1g TID and Lamictal 150mg TID. Plan: -- EKG -- Labs -- CXR -- Reassess and disposition Prior Visits: Notes and results from previous visits were reviewed. Progress Notes: EKG shows NSR at 77 BPM. Normal EKG. Interpreted by me. 07/15/18 01:07 CXR Impression: As read by me, no acute process. 07/15/18 01:17 Case disucssed with COMPUTER FORENSIC EXAMINER Hailey under Dr. Hernandez's service who agrees with patient o be placed on his service. Request Dr. Tam for consult. - Lab Interpretations I have reviewed the lab results: Yes - RAD Interpretation Radiology Orders: 07/14/18 22:53 CHEST PORTABLE [RAD] Stat Inter Com Installer: ED Physician - EKG Interpretation Interpreted by ED Physician: Yes Type: 12 lead EKG - Scribe Statement The provider has reviewed the documentation as recorded by the Scribe Shavon Telles Provider Scribe Attestation: All medical record entries made by the Scribe were at my direction and personally dictated by me. I have reviewed the chart and agree that the record accurately reflects my personal performance of the history, physical exam, medical decision making, and the department course for this patient. I have also personally directed, reviewed, and agree with the discharge instructions and disposition. Disposition/Present on Arrival - Present on Arrival Any Indicators Present on Arrival: No History of DVT/PE: No History of Uncontrolled Diabetes: No Urinary Catheter: No History of Decub. Ulcer: No History Surgical Site Infection Following: None - Disposition Have Diagnosis and Disposition been Completed?: Yes Diagnosis: Intractable seizures Disposition: HOSPITALIZED Disposition Time: 01:34 Patient Plan: Observation Condition: STABLE
[2018-07-14 23:27] LABS: HEMOGLOBIN 12.5 g/dL (12.0-16.0); MEAN CELL VOLUME 95.8 fl (80.0-105.0); MEAN CORPUSCULAR HEMOGLOBIN 30.9 pg (25.0-35.0); MEAN CORPUSCULAR HGB CONC 32.3 g/dl (31.0-37.0); MEAN PLATELET VOLUME 10.1 fl (7.0-11.0); RBC 4.04 10^6/uL (3.5-6.1); WHITE BLOOD COUNT 5.9 10^3/uL (4.5-11.0)
[2018-07-14 23:34] LABS: INR 1.09; PARTIAL THROMBOPLASTIN TIME 28.9 Seconds (26.9-38.3); PROTHROMBIN TIME 12.1 SECONDS (9.4-12.5)
[2018-07-15 00:32] LABS: ALB/GLOB RATIO 1.2 (1.1-1.8); ALBUMIN 3.8 g/dL (3.0-4.8); ALT/SGPT 9 U/L (7-56); AST/SGOT 34 U/L (14-36); BLOOD UREA NITROGEN 18 mg/dL (7-21); CALCIUM 9.3 mg/dL (8.4-10.5); GFR NON-AFRICAN AMERICAN > 60
[2018-07-15 00:42] LABS: TROPONIN I < 0.01 ng/mL
[2018-07-15] MEDS: Levothyroxine 75 MCG TAB PO SCH (07:50)
--- NOTE | 2018-07-15 09:02 | RAD ---
Date of service: 07/14/2018 HISTORY: seizure COMPARISON: 07/11/2018 TECHNIQUE: 1 view obtained. FINDINGS: LUNGS: No active pulmonary disease. PLEURA: No significant pleural effusion identified, no pneumothorax apparent. CARDIOVASCULAR: No aortic atherosclerotic calcification present. Normal cardiac size. No pulmonary vascular congestion. OSSEOUS STRUCTURES: No significant abnormalities. VISUALIZED UPPER ABDOMEN: Normal. OTHER FINDINGS: None. IMPRESSION: No active disease.
--- NOTE | 2018-07-15 11:42 | CP.PCM.PCO ---
Physician Communication Note - Physician Communication Note Physician Communication Note: neurology consult pending
[2018-07-15 18:39] VITALS: RESP 20
--- NOTE | 2018-07-15 19:25 | HP ---
DATE OF EXAM: 07/15/2018 HISTORY OF PRESENT ILLNESS: Manisha Taylor is back in the hospital. She went home to [facility] and after about 20 hours started having seizures again. She was in the hospital for about 48 hours without any seizures. I discussed with the nurse at length to make sure she is getting her medications for seizures, they assured me she was, so we sent her back to the ER. As soon as she got to the ER she got one dose of Ativan. She had no seizures and spent about 18 hours so far. I will watch her on observation for the 24 hours, hopefully she will not have more seizures. I will make sure she gets her medication, gets Neurology to see her. She is a 72-year-old white female, very pleasant this morning. Alert and oriented x3 without any difficulty eating her breakfast and she feels fairly well. She understands that she is back on the hospital for seizures. She has taken the medication. PAST MEDICAL HISTORY: Seizures, hypothyroid, osteoporosis, anxiety, a little bipolar. FAMILY HISTORY: No known family history. SOCIAL HISTORY: Nonsmoker. No drinking. No drugs. ALLERGIES: NO KNOWN DRUG ALLERGIES. MEDICATIONS: She takes the aspirin, Ativan, Lamictal, Synthroid, Lopressor, Zyprexa, Evista, Crestor and Keppra. REVIEW OF SYSTEMS: At this time; no acute vision or hearing changes. She is very pleasant. No sore throat. No neck pain. No chest pain. No palpitations. No shortness of breath or cough. No abdominal pain, nausea, vomiting, constipation, or diarrhea. She urinates fine. She can move all four of her extremities without any problems. She does not know of any skin issues that she might have. She is not anxious. She understands why she is back in the hospital. PHYSICAL EXAMINATION GENERAL: She is well appearing, nontoxic, comfortable at this time. Alert and oriented x3. She was postictal when she got to the emergency room and now she is fine, back to her baseline. VITAL SIGNS: She has a 97.9 temperature, 80 pulse, 16 respiratory rate, 123/71 blood pressure, 100% O2 sat. HEENT: Head is atraumatic, normocephalic. Extraocular muscles are intact. Pupils equally react to light. In the emergency room they checked the ears out and the tympanic membranes were fine. Throat is moist. NECK: Supple. CARDIOPULMONARY: Heart is regular rate. Normal S1, S2. LUNGS: Decreased breath sounds but clear to auscultation. Poor inspiration but no wheezes or rhonchi. No rales. ABDOMEN: Soft, nontender. Positive bowel sounds. No guarding, no rebound or CVA tenderness. EXTREMITIES: She moves all four extremities well for her being 72 years of age. She has no edema. NEUROLOGIC: GCS is 15. Cranial nerves II through XII grossly intact at this time. Speech is normal. She puts her tongue midline. She is smiling. She closes her eyes tight, no problem. SKIN: Warm and dry. No apparent rashes or ulcers that l could appreciate. LYMPHATICS: Thyroid midline. No palpable appreciable lymphadenopathy at this time. LABORATORY DATA: She did have a bunch tests. We have a 138 sodium, potassium 4.4, BUN 80, creatinine 0.7, GFR is greater than 60, sugar is 82, calcium is 9.3, total bili is 0.3, AST is 34, ALT is 9, alk phos 66. Lactate hydrogenase is 470. Total creatinine kinase is 337, total protein is 7. Troponin I is less than 0.01, albumin is 3.8. The INR is 1.09. CBC; with a 5.9 white count, 12.5 hemoglobin, 38.7 hematocrit and 197 platelets. She had a chest x-ray that shows no acute disease. IMPRESSION AND PLAN: She is back on her medication. She has Ativan just in case, aspirin, Evista, Keppra, Lamictal, Lipitor, Lopressor, Synthroid, Zyprexa. Consult with Dr. Tam for Neurology. She has seizure precautions. Physical therapy ordered out of bed to chair. Diet. She is on observation. Hopefully, we could discharge her back tomorrow if everything goes well. She had electroencephalograms the last time she was here and I will have a discussion with Dr. Tam, the neurologist. The patient is here for breakthrough seizures. Natanael Hernandez DO
--- NOTE | 2018-07-15 20:58 | CARD ---
APPROVED REPORT Date of service: 07/14/2018 EKG Measurement Heart [id number] <Conclusion> Normal sinus rhythm Normal ECG
--- NOTE | 2018-07-15 21:20 | CON ---
DATE: 07/15/2018 HISTORY OF PRESENT ILLNESS: This is a 72-year-old female with past medical history of seizure disorder, hypertension, bipolar and came here from the half-way with recurrent seizure. No tongue bite. No urinary incontinence. The patient was getting Keppra and Lamictal, so I will increase the Lamictal and just had a breakthrough seizure. PAST MEDICAL HISTORY: Hypertension, seizure, bipolar, hypothyroidism, and hypertension. ALLERGIES: NO KNOWN DRUG ALLERGY. HOME MEDICATIONS: Ativan, Lamictal, Synthroid, and Keppra. REVIEW OF SYSTEMS: A 10-point review of systems was negative. PHYSICAL EXAMINATION: VITAL SIGNS: Blood pressure 123/71. HEENT: Normocephalic and atraumatic. NECK: Supple. NEUROLOGIC: Alert, awake, and oriented x3. No aphasia. Cranial nerves II through XII are tested. Pupils reactive. EOM intact. Visual field full. No facial asymmetry. Tongue midline. Motor examination; moves all the extremities equally. Tone normal. Deep tendon reflexes 1+. Both plantars are downgoing. Sensory appears intact. Cerebellar gait deferred. IMPRESSION AND PLAN: Breakthrough seizure. No tongue bite. No urinary incontinence. We will increase the Lamictal to 200 mg and continue present management. We will follow up. Mateo Tam MD
[2018-07-16] MEDS: Levothyroxine 75 MCG TAB PO SCH (06:39)
[2018-07-16 08:07] LABS: HEMOGLOBIN 12.4 g/dL (12.0-16.0); MEAN CELL VOLUME 96.2 fl (80.0-105.0); MEAN CORPUSCULAR HEMOGLOBIN 31.1 pg (25.0-35.0); MEAN CORPUSCULAR HGB CONC 32.3 g/dl (31.0-37.0); MEAN PLATELET VOLUME 9.8 fl (7.0-11.0); RBC 3.99 10^6/uL (3.5-6.1); RED CELL DISTRIBUTION WIDTH 12.8 % (11.5-14.5)
[2018-07-16 08:19] LABS: ALBUMIN 3.1 g/dL (3.0-4.8); ALT/SGPT 16 U/L (7-56); AST/SGOT 25 U/L (14-36); BLOOD UREA NITROGEN 15 mg/dL (7-21); CALCIUM 9.1 mg/dL (8.4-10.5); GFR NON-AFRICAN AMERICAN > 60
[2018-07-16 09:53] VITALS: PULSE 66
[2018-07-16 10:57] VITALS: O2SAT 98
--- NOTE | 2018-07-16 11:25 | RAD ---
Date of service: 07/16/2018 HISTORY: r/o active disease COMPARISON: 07/14/2018 TECHNIQUE: 1 view obtained. FINDINGS: LUNGS: No active pulmonary disease. PLEURA: No significant pleural effusion identified, no pneumothorax apparent. CARDIOVASCULAR: No aortic atherosclerotic calcification present. Normal cardiac size. No pulmonary vascular congestion. OSSEOUS STRUCTURES: No significant abnormalities. VISUALIZED UPPER ABDOMEN: Normal. OTHER FINDINGS: None. IMPRESSION: No active disease.
[2018-07-16 13:31] VITALS: BP 130/68; TEMP 98.1
--- NOTE | 2018-07-16 15:00 | DS ---
HISTORY OF PRESENT ILLNESS: She was here for breakthrough seizures at the Since she has been on the [facility], she has no seizures anymore. MEDICATIONS: She was given Ativan just one dose, Ecotrin, Evista, Keppra 1000 twice a day, now she is on Lamictal 200 mg three times a day, Lipitor, metoprolol, levothyroxine and Zyprexa. She will be back at the today, she is alert in bed presently confused. PHYSICAL EXAMINATION: VITAL SIGNS: A 97.6 temp, 58 pulse, 98/53 blood pressure, 20 respiratory rate and 95% O2 sat on room air. HEENT: Head is atraumatic and normocephalic. HEART: Regular rate. LUNGS: Decreased breath sounds, but clear. ABDOMEN: Soft. EXTREMITIES: No edema. LABORATORY DATA: She has a sodium 139, potassium 4.1, BUN 15, creatinine 0.7, GFR is greater than 60, sugar is 74, calcium 9.1, total bili is 0.4, AST is 25, ALT is 16, alk phos 48, troponin I less than 0.01, total protein is 6.1 and INR is 1.09. White count 5, hemoglobin 12.4, hematocrit 38.4 and platelets are 164. She will be discharged back to today Wednesday today is Wednesday. Medicines will be increased. Natanael Hernandez DO [email or web address]
== END 2018-07-16 15:38 ==
LOC: ED 22:17 → ERH 07-15 01:17 → 2RNO 07-15 02:01
PROVIDERS: ADMIT Family Medicine; ATTEND Family Medicine
DX: G40.919 Epilepsy, unspecified, intractable, without status epilepticus (principal); E03.9 Hypothyroidism, unspecified; I10 Essential (primary) hypertension; F31.9 Bipolar disorder, unspecified; M81.0 Age-related osteoporosis without current pathological fracture; Z79.82 Long term (current) use of aspirin
CPT/HCPCS: 36415; 71045; 80053; 82550; 83615; 84484; 85027; 85610; 85730; 93005; 97162; 99285; G0378; G8978; G8979

== ENCOUNTER 2018-07-16 22:05 | Observation (INO) | payer MEDICARE, BC ==
--- NOTE | 2018-07-16 22:53 | ED PDOC ---
Arrival/HPI - General Chief Complaint: Seizure Time Seen by Provider: 07/16/18 22:35 Historian: Patient, EMS - History of Present Illness Narrative History of Present Illness (Text): 07/16/18 22:56 A 72 year old female, whose past medical history includes Seizure disorder, hypertension, bipolar disorder, presents to the emergency department via EMS from [facility] [place] s/p seizure. Patient denies any complaints. The pat ient was discharged this morning after admission for seizure. Patient takes medication for her seizures and during her last admission, the dosage of one of her medications was increased. Patient is drowsy, consistent with post-ictal period. The patient denies fevers, chills, headache, dizziness, chest pain, shortness of breath, dyspnea on exertion, cough, abdominal pain, nausea, vomiting, diarrhea, back pain, neck pain, urinary/bowel changes, or any other complaint. PMD: Dr. Hernandez Time/Duration: Prior to Arrival Symptom Onset: Sudden Symptom Course: Unchanged Activities at Onset: Rest, Light Context: Home Past Medical History - Provider Review Nursing Documentation Reviewed: Yes - Infectious Disease Hx of Infectious Diseases: None - Cardiac Hx Hypertension: Yes - Neurological Hx Neurological Disorder: Yes Hx Seizures: Yes - HEENT Hx HEENT Disorder: (wears glasses) - Endocrine/Metabolic Hx Hypothyroidism: Yes - Musculoskeletal/Rheumatological Hx Falls: Yes Hx Osteoporosis: Yes (with pathological fracture) - Psychiatric Hx Anxiety: Yes Hx Bipolar Disorder: Yes Hx Substance Use: No - Anesthesia Hx Anesthesia: No Family/Social History - Physician Review Nursing Documentation Reviewed: Yes Family/Social History: No Known Family HX Smoking Status: Never Smoked Hx Alcohol Use: No Hx Substance Use: No Allergies/Home Meds Allergies/Adverse Reactions: Allergies No Known Allergies Allergy (Verified 07/16/18 22:07) Home Medications: Home Meds Medication Instructions Recorded Confirmed Aspirin [Adult Aspirin] 1 tab PO DAILY 07/11/18 07/16/18 LORazepam [Ativan] 1 tab PO PRN PRN 07/11/18 07/16/18 Levothyroxine [Synthroid] 1 tab PO DAILY 07/11/18 07/16/18 Metoprolol Tartrate [Lopressor] 1 tab PO BID 07/11/18 07/16/18 OLANZapine [Zyprexa] 1 tab PO BID 07/11/18 07/16/18 Raloxifene [Evista] 1 tab PO DAILY 07/11/18 07/16/18 Rosuvastatin Calcium [Crestor] 1 tab PO HS 07/11/18 07/16/18 levETIRAcetam [Keppra] 4 tab PO TID 07/11/18 07/16/18 Lamotrigine [Lamictal] 200 mg PO TID 07/16/18 07/16/18 Review of Systems - Physician Review All systems were reviewed & negative as marked: Yes - Review of Systems Constitutional: absent: Fevers Respiratory: absent: SOB Physical Exam - Physical Exam Narrative Physical Exam (Text): 07/16/18 23:00 Constitutional: No acute distress. Head: Normocephalic. Atraumatic. Eyes: PERRL. ENT: Moist mucous membranes. No tongue lacerations. Neck: Supple. Cardiovascular: Regular rate. Chest: No tenderness. Respiratory: Clear to auscultation bilaterally. GI: Soft. Nontender. Nondistended. Back: No CVA tenderness. Musculoskeletal: No tenderness or swelling of extremities. Skin: No rash. Neurologic: Alert, no focal deficit. Vital Signs Reviewed: Yes Vital Signs Temp Pulse Resp BP Pulse Ox 07/16/18 22:30 96.9 F L 85 20 143/90 99 Temperature: Afebrile Blood Pressure: Normal Pulse: Regular Respiratory Rate: Normal Appearance: Positive for: Well-Appearing, Non-Toxic, Comfortable Pain Distress: None Mental Status: Positive for: Alert and Oriented X 3 Finger Stick Blood Glucose: 98 Medical Decision Making ED Course and Treatment: 07/16/18 23:00 Impression: A 72 year old female presents to the emergency department form care home s/p seizure. Plan: -- Reassess and disposition Prior Visits: Notes and results from previous visits were reviewed. Patient was last seen in the emergency department on 07/14/2017 for further evaluation s/p seizure. Patient was hospitalized. Progress Notes: 07/16/18 23:01: Case discussed in detail with Dr. Hernandez who agrees with observation under his service for recurrent seizures. EKG: NSR at [address]- T wave changes. CXR no acute disease. - Scribe Statement The provider has reviewed the documentation as recorded by the Isai Rosario Provider Scribe Attestation: All medical record entries made by the Scribe were at my direction and personally dictated by me. I have reviewed the chart and agree that the record accurately reflects my personal performance of the history, physical exam, medical decision making, and the department course for this patient. I have also personally directed, reviewed, and agree with the discharge instructions and disposition. Disposition/Present on Arrival - Present on Arrival Any Indicators Present on Arrival: No History of DVT/PE: No History of Uncontrolled Diabetes: No Urinary Catheter: No History of Decub. Ulcer: No History Surgical Site Infection Following: None - Disposition Have Diagnosis and Disposition been Completed?: Yes Diagnosis: Seizure Disposition: HOSPITALIZED Disposition Time: 23:12 Patient Plan: Observation, Telemetry Patient Problems: Current Active Problems Problem Status Onset Seizure Acute Condition: GOOD
[2018-07-17 01:07] LABS: BASO # 0.02 K/mm3 (0.0-2.0); BASO % 0.3 % (0.0-3.0); EOS # 0.1 (0.0-0.7); HEMOGLOBIN 12.9 g/dL (12.0-16.0); LYMPH # 2.3 (1.2-3.4); LYMPH % 37.7 % (22.0-35.0); MEAN CELL VOLUME 96.1 fl (80.0-105.0); MEAN CORPUSCULAR HEMOGLOBIN 31.4 pg (25.0-35.0); MEAN CORPUSCULAR HGB CONC 32.7 g/dl (31.0-37.0); MEAN PLATELET VOLUME 10.1 fl (7.0-11.0); MONO # 0.6 (0.1-0.6); MONO % 9.9 % (1.0-6.0); RBC 4.11 10^6/uL (3.5-6.1); RED CELL DISTRIBUTION WIDTH 12.9 % (11.5-14.5); WHITE BLOOD COUNT 6.1 10^3/uL (4.5-11.0)
[2018-07-17 01:53] LABS: ALB/GLOB RATIO 1.1 (1.1-1.8); ALBUMIN 4.3 g/dL (3.0-4.8); ALT/SGPT < 6 U/L (7-56); AST/SGOT 62 U/L (14-36); BLOOD UREA NITROGEN 20 mg/dL (7-21); CALCIUM 9.2 mg/dL (8.4-10.5); GFR NON-AFRICAN AMERICAN > 60
[2018-07-17 02:44] LABS: ALB/GLOB RATIO 1.1 (1.1-1.8); ALBUMIN 3.2 g/dL (3.0-4.8); ALT/SGPT 17 U/L (7-56); AST/SGOT 26 U/L (14-36); BLOOD UREA NITROGEN 18 mg/dL (7-21); CALCIUM 9.1 mg/dL (8.4-10.5); GFR NON-AFRICAN AMERICAN > 60
[2018-07-17 04:49] VITALS: BMI 20.1
[2018-07-17] MEDS ORDERED: Levothyroxine 75 MCG TAB PO SCH (10:00)
[2018-07-17] MEDS ORDERED: LAMOTRIGINE 200 MG PO SCH (10:00)
[2018-07-17] MEDS ORDERED: Levothyroxine 100 MCG TAB PO SCH (10:07)
--- NOTE | 2018-07-17 10:56 | RAD ---
Date of service: 07/16/2018 HISTORY: seizure COMPARISON: Earlier same day TECHNIQUE: 1 view obtained. FINDINGS: LUNGS: No active pulmonary disease. PLEURA: No significant pleural effusion identified, no pneumothorax apparent. CARDIOVASCULAR: No aortic atherosclerotic calcification present. Normal cardiac size. No pulmonary vascular congestion. OSSEOUS STRUCTURES: No significant abnormalities. VISUALIZED UPPER ABDOMEN: Normal. OTHER FINDINGS: None. IMPRESSION: No active disease.
[2018-07-17] MEDS: Sodium Chloride 0.45% 1,000 ML IV SCH (11:13)
--- NOTE | 2018-07-17 17:37 | CARD ---
APPROVED REPORT Date of service: 07/16/2018 EKG Measurement Heart [id number] <Conclusion> Normal sinus rhythm Possible Left atrial enlargement Borderline ECG
--- NOTE | 2018-07-17 21:30 | HP ---
DATE OF EXAM: 07/17/2018 HISTORY OF PRESENT ILLNESS: This is her sixth time coming back to [facility] with seizures at [facility]. Once she gets to the hospital, she does not have any seizures. They tell me she is getting all the medications prescribed at [facility]. She is a 72-year-old white female who presented to the emergency room with history of having seizures at [facility] in [facility]. They sent her to the [place] [facility]. Once she is here, she is either postictal or sleepy or alert. She did not have any seizures here at this time. She has had a history of breakthrough seizures, hypertension, bipolar disorder. Apparently the seizures at [facility] are persistent and nonrelenting. Once they get to the hospital, she has not had any seizures, this is the sixth time she is doing it. Now she is a little bit drowsy. PAST MEDICAL HISTORY: She has a history of hypertension, seizures, hypothyroid, anxiety. She had a pathological fracture in the past. She has bipolar history. FAMILY HISTORY: No known family history. SOCIAL HISTORY: No smoker. No drinker. No drugs. ALLERGIES: NO KNOWN DRUG ALLERGIES. MEDICATIONS: She is on aspirin daily 81 mg, Ativan 0.5 mg depending on how she is doing every 3 to 4 hours just in case she has seizures, Synthroid 1 daily, Lopressor twice a day, Zyprexa, Evista, Crestor, she is on Keppra 1000 mg three times a day, and Lamictal up to 200 mg three times a day. REVIEW OF SYSTEMS: She is alert, tired. No fevers. Now postictal. PHYSICAL EXAMINATION VITAL SIGNS: A 96.9 temperature, 85 pulse, 20 respiratory rate, 143/90 blood pressure, and 99% O2 sat on room air. HEENT: Head; atraumatic, normocephalic. No acute distress at this time. Extraocular muscles are intact. Throat is moist. NECK: Supple. HEART: Regular rate. LUNGS: Decreased breath sounds, but clear to auscultation. ABDOMEN: Soft and nontender. Positive bowel sounds. No guarding. No rebound. No CVA tenderness. EXTREMITIES: As far as I could tell no rashes or ulcers. NEUROLOGIC: Alert and oriented x3. Well appearing, mildly confused from time to time. LABORATORY DATA: She had tests done. A 6.1 white count, 12.9 hemoglobin, 39.5 hematocrit, with 199 platelets. She has a 139 sodium, potassium is 3.7, BUN is 18, creatinine 0.7. GFR is greater than 60, sugar is 90, calcium is 9.1. Total bilirubin is 0.3, AST is 26, ALT is 17, alk phos 59. Total protein is 6.1, albumin is 3.2. PLAN: She has got consults with Psychiatry and Neurology. I am hoping I could discharge her tomorrow. She is on observation level of care. I am hoping that Neurology could help me. We have had her medicines adjusted four times in the past six weeks, still she is having breakthrough seizures. Continue aggressive treatment and care on Manisha Taylor. Natanael Hernandez DO
[2018-07-17] MEDS ORDERED: Non Formulary Medication (Rosuvastatin Calcium [Crestor] 1 TAB) PO SCH (22:00)
[2018-07-18 06:17] VITALS: O2SAT 95
[2018-07-18 07:20] LABS: HEMOGLOBIN 13.2 g/dL (12.0-16.0); MEAN CELL VOLUME 96.4 fl (80.0-105.0); MEAN CORPUSCULAR HEMOGLOBIN 31.7 pg (25.0-35.0); MEAN CORPUSCULAR HGB CONC 32.9 g/dl (31.0-37.0); MEAN PLATELET VOLUME 10.2 fl (7.0-11.0); RBC 4.16 10^6/uL (3.5-6.1); RED CELL DISTRIBUTION WIDTH 12.9 % (11.5-14.5)
[2018-07-18 07:51] LABS: ALB/GLOB RATIO 1.1 (1.1-1.8); ALBUMIN 3.6 g/dL (3.0-4.8); ALT/SGPT 12 U/L (7-56); AST/SGOT 26 U/L (14-36); BLOOD UREA NITROGEN 15 mg/dL (7-21); CALCIUM 9.3 mg/dL (8.4-10.5); GFR NON-AFRICAN AMERICAN > 60
--- NOTE | 2018-07-18 12:02 | CP.PCM.PCO ---
Addendum Addendum: 07/18/18 12:01 pt was seen by this bid writer 07/12/18,please see consult note for more detailed information pt presented not depressed, no SI/HI, no psychosis no new psych symptoms pt pose no imminent danger to self or others psychiatry signed off
[2018-07-18 13:22] VITALS: RESP 20
--- NOTE | 2018-07-18 16:04 | CON ---
DATE: 07/18/2018 NEUROLOGY CONSULTATION CHIEF COMPLAINT: Break through seizure. HISTORY OF PRESENT ILLNESS: This is a 72-year-old woman with past medical history of seizure disorder currently with recently had been adjusted her meds on her last admission on where Lamictal was increased to 200 mg p.o. b.i.d. and is on Keppra 1000 t.i.d., hypertension, bipolar disorder came [facility] for questionable seizure and was drowsy and had a questionable postictal component. Her medications reviewed and increased as well. Her last EEG which was done on 07/13/2018 initial one was normal and the other one showed mild right temporal slowing, otherwise , no evidence of epileptiform activity. There is a questionable that this is also an anxiety related juanito that she is having rather than actual epileptic because there was no evidence of any tongue bite, urinary incontinence or bladder incontinence. No focal weakness at this time. No seizures since she has been in the hospital. I have added Depakote 500 mg p.o. twice a day which also bump the affect of lamotrigine and give her try effective antiepileptic coverage. She will need to see an epileptologist, this is an outpatient if she keeps coming with these episodes, not much from our standpoint we could offer her. PAST MEDICAL HISTORY: As above. SOCIAL HISTORY: No illicit drug use, smoking, or EtOH abuse. ALLERGIES: NO KNOWN DRUG ALLERGIES. MEDICATIONS: Reviewed by nurse's reconciliation sheet. REVIEW OF SYSTEMS: A 14-point review of systems is negative except as per the HPI. PHYSICAL EXAMINATION: GENERAL: The patient sitting up in bed, in no acute distress. VITAL SIGNS: Temperature 97.1, pulse rate 69, blood pressure 125/67, respiratory rate 20 and oxygen saturation 95% on room air. HEENT: Head is atraumatic and normocephalic. PERRLA. Extraocular muscles intact. NECK: Supple. No JVD. No adenopathy noted. LUNGS: Clear to auscultation. No adventitious sounds. HEART: S1 and S2, normal rate and rhythm. No murmurs, rubs or gallops. ABDOMEN: Soft and nontender. No distended. Bowel sounds present. EXTREMITIES: No clubbing. No cyanosis. Peripheral pulses 2+ bilaterally. NEUROLOGIC: The patient is alert, oriented to person, place, month, and year. thought process. Speech is fluent without any errors. No aphasia noted. Motor exam; moves all extremities equally. No pronator drift seen. Sensory exam; light touch, pinprick, proprioception and vibration are intact. DTRs are 2+. Coordination; [id number] is intact. No dysmetria noted. Gait is deferred for now. LABORATORY DATA: Sodium is 138, potassium 4.3, chloride 104, carbon dioxide 28, BUN 50, creatinine 0.7 and random glucose is 75. IMPRESSION: Breakthrough seizure, underlying chronic seizure disorder. We will add: 1. Depakote 500 mg p.o. daily in addition to her Lamictal 200 mg p.o. b.i.d. which will give her more of a bump effect in addition to continue with her current dose of Keppra 1000 p.o. t.i.d., given these coverage of her seizures. 2. Outpatient psychiatric evaluation since psychiatry has not give us any insight trigger her hospital visit here. 3. Followup with an outpatient epileptologist. At this time, she is clinically stable from my standpoint. Thank you for this consult. James Tam MD
[2018-07-18] MEDS: Divalproex 500 mg DR(BID formulation) PO SCH ×2 (16:05→19:15)
[2018-07-18 19:02] VITALS: BP 125/73; PULSE 63
[2018-07-18] MEDS: Sodium Chloride 0.45% 1,000 ML IV SCH (19:11)
[2018-07-18 19:27] VITALS: TEMP 97.6
--- NOTE | 2018-07-19 02:35 | DS ---
HISTORY OF PRESENT ILLNESS: She had another seizure in the past 24 hours. I am hoping when she goes back to [facility], she would not have a seizure. I discussed with Neurology and hopefully the Neurology and Psychiatry sees her today. I will be able to discharge her back [facility]. I they make any adjustments, they will let me know and hopefully she will do well there. Right now, no seizures in 24 hours. PHYSICAL EXAMINATION: VITAL SIGNS: She has 98.2 temp, 67 pulse, 115/69 blood pressure, 18 respiratory rate, and 95% O2 sat on room air. HEENT: Head is atraumatic and normocephalic. HEART: Regular rate. LUNGS: Decreased breath sounds, but clear. ABDOMEN: Soft. EXTREMITIES: No edema. She is pleasant. LABORATORY DATA: She has a 5 white count, 13.2 hemoglobin, 40.1 hematocrit with a 179 platelets. She has a sodium 138, potassium 4.3, BUN 15, creatinine 0.7, GFR is greater than 60, sugar is 75, calcium is 9.3, total bili is 0.5, AST is 26, ALT is 12, alk phos is 54, thyroid is 2.86 TSH. ASSESSMENT AND PLAN: I am hoping that we can make some adjustments in her medications that she will to be discharge back [facility] today and hoping she would not have any more seizures. Manisha Taylor who is having breakthrough seizures. Natanael Hernandez DO [email or web address]
--- NOTE | 2018-07-19 03:59 | CON ---
DATE: 07/18/2018 HISTORY OF PRESENT ILLNESS: The patient is a 72-year-old female with reported history of bipolar disorder, which is questionable. The patient has history of seizure disorder. The patient was admitted on the medical side, 3 days in a row, 07/11. The patient was discharged on 07/13. The patient came back to the hospital, 07/15, was discharged, 07/16. The patient was readmitted again on 07/17 for seizure disorder and seizure activity. Psych consult was called for medication as well as questionable history of mood spectrum disorder. The patient was involved under the patient care on last admission on 07/12/2018. The patient was re-consulted again this admission. The patient was seen and examined. The patient presented well. The patient reported that she does not feel depressed, she does not feel anxious. The patient reported that her visit to the hospital was because of seizure activity. The patient denied any psychotic symptoms, reported to feel comfortable. The patient adamantly denied any thoughts of harming herself or others. The patient knows that she is in the hospital and [facility]. VITAL SIGNS: Stable. Temperature 97.1, pulse 69, blood pressure 125/67, respirations 26, and oxygen saturation is 95%. MEDICATIONS: Reviewed. The patient is on aspirin, Lipitor, Depakote 500 mg twice a day, Lamictal 200 mg 3 times a day, Keppra 1000 mg 3 times a day, Synthroid, Ativan, Lopressor, Zyprexa 2.5 mg twice a day, Evista 60 mg daily, and sodium chloride. LABORATORY DATA: Reviewed. Most recent was from 07/18, seems to be within normal limits. Electrolytes within normal limits. MENTAL STATUS EXAMINATION: The patient appears to be sleepy, easily arousable. Fair eye contact. Mood described as good. Affect was reactive, mood congruent. Thought process seems to be concrete. Thought content: Denied visual, auditory, or tactile hallucinations. Denied paranoid ideation. The patient denied thoughts of harming herself or others. Denied intent or plan. Insight and judgment seems to be improving. Impulses are well controlled. IMPRESSION: As per history, bipolar disorder, but this flex o writer operator is not sure what is true history. The patient was admitted for seizure disorder. This flex o writer operator cannot exclude pseudoseizures, but at the same time, the patient has reported history of seizure disorder. Meanwhile, the patient should continue all antiseizure medications. Follow up with outpatient psychiatrist or psychiatrist [facility] within 48 hours. Zyprexa was started by medical team, this flex o writer operator is not sure what is the rationale, but the patient will see a psychiatrist in the [facility] who can review her medications. This flex o writer operator will sign off. The patient posed no imminent danger to self or others. Should you have any questions, give me a callback. Thank you very much. Hannah Gomez MD
== END 2018-07-18 21:57 ==
LOC: ED 22:05 → ERH 07-17 02:46 → 2RNO 07-17 03:29
PROVIDERS: ADMIT Family Medicine; ATTEND Family Medicine
DX: G40.909 Epilepsy, unspecified, not intractable, without status epilepticus (principal); E03.9 Hypothyroidism, unspecified; I10 Essential (primary) hypertension; F31.9 Bipolar disorder, unspecified; M81.0 Age-related osteoporosis without current pathological fracture; Z79.82 Long term (current) use of aspirin; Z79.899 Other long term (current) drug therapy
CPT/HCPCS: 36415; 71045; 80053; 82948; 83735; 84100; 84443; 85025; 85027; 93005; 96374; 99285; G0378; J2060; J7030

== ENCOUNTER 2018-07-19 02:55 | Inpatient (IN) | payer MEDICARE, BC ==
[2018-07-19 02:55] VITALS: BMI 20.1
[2018-07-19 03:38] LABS: HEMOGLOBIN 13.9 g/dL (12.0-16.0); MEAN CELL VOLUME 95.4 fl (80.0-105.0); MEAN CORPUSCULAR HEMOGLOBIN 31.7 pg (25.0-35.0); MEAN CORPUSCULAR HGB CONC 33.3 g/dl (31.0-37.0); MEAN PLATELET VOLUME 9.5 fl (7.0-11.0); RBC 4.38 10^6/uL (3.5-6.1); RED CELL DISTRIBUTION WIDTH 12.7 % (11.5-14.5); WHITE BLOOD COUNT 9.8 10^3/uL (4.5-11.0)
--- NOTE | 2018-07-19 03:38 | ED PDOC ---
Arrival/HPI - General Chief Complaint: Altered Mental Status Time Seen by Provider: 07/19/18 03:10 Historian: [facility], EMS EM Caveat: Altered Mental Status - History of Present Illness Narrative History of Present Illness (Text): 07/19/18 03:29 72 year old female, whose past medical history includes Seizure disorder, hypertension, bipolar disorder, presents to the emergency department via EMS from [facility] for AMS. According to EMS, patient was having increased agitation while at the residential. Patient was refusing to take her medications and spitting them out. On arrival here patient yelling at times with rambling speech. Patient refusing to answer questions appropriately. HPI and ROS limited due to patient's condition.. PMD: Dr. Hernandez Time/Duration: Prior to Arrival Symptom Onset: Gradual Symptom Course: Unchanged Activities at Onset: Light Context: Home Past Medical History - Provider Review Nursing Documentation Reviewed: Yes - Infectious Disease Hx of Infectious Diseases: None - Cardiac Hx Hypertension: Yes - Pulmonary Hx Respiratory Disorders: No - Neurological Hx Neurological Disorder: Yes Hx Seizures: Yes - HEENT Hx HEENT Disorder: (wears glasses) - Renal Hx Renal Disorder: No - Endocrine/Metabolic Hx Hypothyroidism: Yes - Hematological/Oncological Hx Blood Disorders: No - Integumentary Hx Dermatological Disorder: No - Musculoskeletal/Rheumatological Hx Falls: Yes Hx Osteoporosis: Yes (with pathological fracture) - Gastrointestinal Hx Gastrointestinal Disorders: No - Genitourinary/Gynecological Hx Genitourinary Disorders: No - Psychiatric Hx Anxiety: Yes Hx Bipolar Disorder: Yes Hx Substance Use: No - Anesthesia Hx Anesthesia: No Family/Social History - Physician Review Nursing Documentation Reviewed: Yes Family/Social History: No Known Family HX Smoking Status: Never Smoked Hx Alcohol Use: No Hx Substance Use: No Allergies/Home Meds Allergies/Adverse Reactions: Allergies No Known Allergies Allergy (Verified 07/19/18 03:00) Home Medications: Home Meds Medication Instructions Recorded Confirmed Aspirin [Adult Aspirin] 1 tab PO DAILY 07/11/18 07/19/18 LORazepam [Ativan] 1 tab PO PRN PRN 07/11/18 07/19/18 Levothyroxine [Synthroid] 1 tab PO DAILY 07/11/18 07/19/18 Metoprolol Tartrate [Lopressor] 1 tab PO BID 07/11/18 07/19/18 OLANZapine [Zyprexa] 1 tab PO BID 07/11/18 07/19/18 Raloxifene [Evista] 1 tab PO DAILY 07/11/18 07/19/18 Rosuvastatin Calcium [Crestor] 1 tab PO HS 07/11/18 07/19/18 levETIRAcetam [Keppra] 4 tab PO TID 07/11/18 07/19/18 Lamotrigine [Lamictal] 200 mg PO TID 07/16/18 07/19/18 Review of Systems - Physician Review All systems were reviewed & negative as marked: Yes - Review of Systems Systems not reviewed;Unavailable: Altered Mental Status Physical Exam Vital Signs Reviewed: Yes Vital Signs Temp Pulse Resp BP Pulse Ox 07/19/18 02:56 98.7 F 91 H 20 110/91 H 100 Temperature: Afebrile Blood Pressure: Normal Pulse: Regular Respiratory Rate: Normal Appearance: Positive for: Non-Toxic, Comfortable Pain Distress: None Mental Status: Positive for: Agitated Finger Stick Blood Glucose: 85 - Systems Exam Head: Present: Atraumatic, Normocephalic Pupils: Present: PERRL Extroacular Muscles: Present: EOMI Conjunctiva: Present: Normal Mouth: Present: Moist Mucous Membranes Pharnyx: Present: Normal Neck: Present: Normal Range of Motion Respiratory/Chest: Present: Clear to Auscultation, Good Air Exchange. No: Respiratory Distress, Accessory Muscle Use Cardiovascular: Present: Regular Rate and Rhythm, Normal S1, S2. No: Murmurs Abdomen: Present: Normal Bowel Sounds. No: Tenderness, Distention, Peritoneal Signs Back: Present: Normal Inspection Upper Extremity: Present: Normal Inspection. No: Cyanosis, Edema Lower Extremity: Present: Normal Inspection. No: Edema Neurological: Present: GCS=15, CN II-XII Intact, Speech Normal, Motor Func Grossly Intact, Normal Sensory Function Skin: Present: Warm, Dry, Normal Color. No: Rashes Psychiatric: Present: Alert, Agitated Medical Decision Making ED Course and Treatment: 07/19/18 03:41 Impression: 72 year old female presents with AMS. Plan: -- CT Head -- EKG -- Cardiac Iso, CMP -- CBC -- Chest X-ray -- Ativan -- Reassess and disposition Prior Visits: Notes and results from previous visits were reviewed. Progress Notes: 07/19/18 04:09 EKG reviewed by me, shows: Normal sinus rhythm @ 76 bpm No acute changes 07/19/18 04:30 Patient no longer agitated following having received ativan, she is awake and alert, stating she knows she's at [facility]. Patient is apologetic when being interviewed. Patient denies any symptoms, states that she just feels sleepy. 07/19/18 04:41 CT SCAN OF THE BRAIN WITHOUT IV CONTRAST CLINICAL INDICATION: Altered mental status. COMPARISON: 05/21/2018. TECHNIQUE: Axial and reformatted sagittal and coronal images of the brain obtained without IV contrast administration. Normal size of the ventricles and extra-axial spaces for the patient's age. Normal white matter tracts of the supratentorial brain. Normal basal ganglia and thalami. Normal brainstem. Normal cerebellum. There is no demonstrated extra-axial, intraparenchymal, or intraventricular hemorrhage. There are no findings of an acute ischemic infarction. Normal calvarium. There is no demonstrated fracture. Normal soft tissue structures. Normal visualized paranasal sinuses. IMPRESSION: Normal unenhanced CT scan of the brain. 07/19/18 04:49 Chest X-ray reviewed by me, shows: No acute process 07/19/18 04:50 Case was discussed with patient's PMD, Dr Hernandez, states that patient has been admitted recently on multiple occasions with similar presentation and a negative medical workup. He is requesting that the patient be screened by psychiatry for admission to the psychiatric floor. 07/19/18 07:00 Case endorsed to pending PES/psych evaluation/reassess/final disposition - RAD Interpretation Radiology Orders: 07/19/18 03:17 HEAD W/O CONTRAST [CT] Stat 07/19/18 03:18 CHEST PORTABLE [RAD] Stat - Medication Orders Current Medication Orders: Discontinued Medications Lorazepam (Ativan) 1 mg IVP ONCE ONE Stop: 07/19/18 03:20 - Scribe Statement The provider has reviewed the documentation as recorded by the Isai Yanez Provider Scribe Attestation: All medical record entries made by the Scribe were at my direction and personally dictated by me. I have reviewed the chart and agree that the record accurately reflects my personal performance of the history, physical exam, medical decision making, and the department course for this patient. I have also personally directed, reviewed, and agree with the discharge instructions and disposition. Disposition/Present on Arrival - Present on Arrival Any Indicators Present on Arrival: No History of DVT/PE: No History of Uncontrolled Diabetes: No Urinary Catheter: No History of Decub. Ulcer: No History Surgical Site Infection Following: None - Disposition Have Diagnosis and Disposition been Completed?: No Diagnosis: Dementia, Bipolar disorder Disposition Time: 07:00 Condition: STABLE Forms: [employer] (Estonian)
[2018-07-19 04:02] LABS: TROPONIN I < 0.01 ng/mL
[2018-07-19 04:11] LABS: ALB/GLOB RATIO 1.3 (1.1-1.8); ALBUMIN 4.7 g/dL (3.0-4.8); ALT/SGPT 15 U/L (7-56); AST/SGOT 36 U/L (14-36); BLOOD UREA NITROGEN 21 mg/dL (7-21); CALCIUM 10.4 mg/dL (8.4-10.5); GFR NON-AFRICAN AMERICAN 54
[2018-07-19 06:56] LABS: PH,URINE 6.5 (4.7-8.0); URINE BILIRUBIN NEGATIVE (NEGATIVE); URINE BLOOD TRACE-INTACT (NEGATIVE); URINE GLUCOSE (UA) NEGATIVE (NEGATIVE); URINE LEUKOCYTE ESTERASE MODERATE Leu/uL (NEGATIVE); URINE PROTEIN NEGATIVE mg/dL (<30 mg/dL); URINE UROBILINOGEN 0.2 E.U./dL (<1 E.U./dL)
[2018-07-19 07:00] LABS: URINE APPEARANCE SL CLOUDY (CLEAR); URINE COLOR YELLOW (YELLOW)
[2018-07-19 07:06] LABS: URINE RBC 0 - 2 /hpf (0-2)
--- NOTE | 2018-07-19 07:06 | ED PDOC ---
Physical Exam Vital Signs Reviewed: Yes Vital Signs Temp Pulse Resp BP Pulse Ox 07/19/18 06:00 92 H 19 140/57 L 100 07/19/18 04:58 83 18 134/71 100 07/19/18 02:56 98.7 F 91 H 20 110/91 H 100 Temperature: Afebrile Blood Pressure: Normal Pulse: Regular Respiratory Rate: Normal Appearance: Positive for: Well-Appearing, Non-Toxic, Other (rocking back and forth, screaming) Pain Distress: None Mental Status: Positive for: Agitated Finger Stick Blood Glucose: 85 Medical Decision Making ED Course and Treatment: 07/19/18 07:07 Patient signed out to me by Dr. Baker. Pending PES/psych evaluation/reassess/final disposition. 07/19/18 08:49 Pending POA signature. 07/19/18 10:43 POA signature received, Pt admitted to Dr. Gomez w/ DDx bipolar disorder. - Lab Interpretations Lab Results: Troponin I < 0.01 ng/mL 07/19/18 03:27 Total Bilirubin 0.9 mg/dL (0.2-1.3) 07/19/18 03:27 AST 36 U/L (14-36) D 07/19/18 03:27 ALT 15 U/L (7-56) 07/19/18 03:27 Alkaline Phosphatase 73 U/L (38-126) 07/19/18 03:27 Total Protein 8.5 g/dL (5.8-8.3) H 07/19/18 03:27 Albumin 4.7 g/dL (3.0-4.8) 07/19/18 03:27 Globulin 3.8 gm/dL 07/19/18 03:27 Albumin/Globulin Ratio 1.3 (1.1-1.8) 07/19/18 03:27 Urine Color Yellow (YELLOW) 07/19/18 06:15 Urine Appearance Sl cloudy (CLEAR) 07/19/18 06:15 Urine pH 6.5 (4.7-8.0) 07/19/18 06:15 Ur Specific [place] 1.015 (1.005-1.035) 07/19/18 06:15 Urine Protein Negative mg/dL (<30 mg/dL) 07/19/18 06:15 Urine Glucose (UA) Negative mg/dL (NEGATIVE) 07/19/18 06:15 Urine Ketones Trace mg/dL (NEGATIVE) H 07/19/18 06:15 Urine Blood Trace-intact (NEGATIVE) H 07/19/18 06:15 Urine Nitrate Negative (NEGATIVE) 07/19/18 06:15 Urine Bilirubin Negative (NEGATIVE) 07/19/18 06:15 Urine Urobilinogen 0.2 E.U./dL (<1 E.U./dL) 07/19/18 06:15 Ur Leukocyte Esterase Moderate [place]/uL (NEGATIVE) H 07/19/18 06:15 - RAD Interpretation Radiology Orders: 07/19/18 03:17 HEAD W/O CONTRAST [CT] Stat 07/19/18 03:18 CHEST ONE VIEW [RAD] Stat - Medication Orders Current Medication Orders: Discontinued Medications Lorazepam (Ativan) 1 mg IVP ONCE ONE Stop: 07/19/18 03:20 Last Admin: 07/19/18 03:25 Dose: 1 mg IVP Administration Document 07/19/18 03:25 KV (Rec: 07/19/18 03:29 KV [id number]) Charges for Administration # of IVP Administrations 1 - Scribe Statement The provider has reviewed the documentation as recorded by the Scribe Hans Paula All medical record entries made by the Scribe were at my direction and personally dictated by me. I have reviewed the chart and agree that the record accurately reflects my personal performance of the history, physical exam, medical decision making, and the department course for this patient. I have also personally directed, reviewed, and agree with the discharge instructions and disposition. Disposition/Present on Arrival - Present on Arrival Any Indicators Present on Arrival: No History of DVT/PE: No History of Uncontrolled Diabetes: No Urinary Catheter: No History of Decub. Ulcer: No History Surgical Site Infection Following: None - Disposition Have Diagnosis and Disposition been Completed?: Yes Diagnosis: Dementia, Bipolar disorder Disposition: HOSPITALIZED Disposition Time: 10:45 Patient Plan: Admission Patient Problems: Current Active Problems Problem Status Onset Bipolar disorder Acute Dementia Acute Condition: STABLE
[2018-07-19 07:07] LABS: URINE BACTERIA MOD /hpf
[2018-07-19 07:24] LABS: BARBITURATES, UR NEGATIVE (NEGATIVE); BENZODIAZEPINES, UR NEGATIVE (NEGATIVE); OPIATES, UR NEGATIVE (NEGATIVE); PHENCYCLIDINE, UR NEGATIVE (NEGATIVE)
--- NOTE | 2018-07-19 08:28 | CT ---
Date of service: 07/19/2018 PROCEDURE: CT HEAD WITHOUT CONTRAST. HISTORY: ams COMPARISON: 05/21/2018 TECHNIQUE: Axial computed tomography images were obtained through the head/brain without intravenous contrast. Radiation dose: Total exam DLP = 970.19 mGy-cm. This CT exam was performed using one or more of the following dose reduction techniques: Automated exposure control, adjustment of the mA and/or kV according to patient size, and/or use of iterative reconstruction technique. FINDINGS: HEMORRHAGE: No intracranial hemorrhage. BRAIN: No mass effect or edema. No atrophy or chronic microvascular ischemic changes. VENTRICLES: Unremarkable. No hydrocephalus. CALVARIUM: Unremarkable. PARANASAL SINUSES: Unremarkable as visualized. No significant inflammatory changes. MASTOID AIR CELLS: Unremarkable as visualized. No inflammatory changes. OTHER FINDINGS: The report concurs with the preliminary [facility] report IMPRESSION: No acute intracranial findings
--- NOTE | 2018-07-19 08:39 | RAD ---
Date of service: 07/19/2018 PROCEDURE: CHEST RADIOGRAPH, 1 VIEW HISTORY: ams COMPARISON: 07/17/2018 FINDINGS: LUNGS: Clear. PLEURA: No pneumothorax or pleural fluid seen. CARDIOVASCULAR: No aortic atherosclerotic calcification present. Normal. OSSEOUS STRUCTURES: No significant abnormalities. VISUALIZED UPPER ABDOMEN: Normal. OTHER FINDINGS: None. IMPRESSION: No active disease.
[2018-07-19 11:11] VITALS: O2SAT 95
--- NOTE | 2018-07-19 15:34 | CARD ---
APPROVED REPORT Date of service: 07/19/2018 EKG Measurement Heart [id number] <Conclusion> Normal sinus rhythm Normal Electrocardiogram
[2018-07-19] MEDS: Divalproex 500 mg DR(BID formulation) PO SCH (17:46)
--- NOTE | 2018-07-19 19:14 | PCM.BM ---
<Georgette Lennon - Last Filed: 07/19/18 19:11> Treatment Plan Problems - Problems identified on initial assessmt AGITATED/AGGRESSIVE BEHAVIOR Date Initiated: 07/19/18 Time Initiated: 19:00 Assessment reference: NA Status: Active Priority: 1 HIGH RISK VIOLENCE Date Initiated: 07/19/18 Time Initiated: 19:00 Assessment reference: NA Status: Active Priority: 2 INEFFECTIVE/IMPULSE CONTROL Date Initiated: 07/19/18 Time Initiated: 19:00 Assessment reference: NA Status: Active Priority: 3 INEFFECTIVE MGT OF THERAPEUTIC REGIMEN Date Initiated: 07/19/18 Time Initiated: 19:00 Assessment reference: NA Status: Active Priority: 4 Treatment assets and liabiliti Patient Assests: cooperative Patient Liabilities: imparied memory - Milieu Protocol Maintain good personal hygiene: daily Encourage regular showers, daily Remind patient to perform daily oral care, daily Assist patient to perform ADL's Maintain personal safety: every shift Educate patient to report safety concerns to staff, every shift Monitor environment for contraband/sharps Medication safety: Monitor for expected outcome, potential side effects: every shift, Assess barriers to learning: every shift, Assess readiness for medication education: every shift Discharge/Continuing Care - Education Needs Education Needs: Patient Medication, Patient Diagnosis/Disease Process, Patient Coping Skills, Patient Anger Management skills, Patient Placement options, Patient Community resources, Patient Activities of Daily Living, Patient Pain, Patient Nutrition, Patient Uses of Medical Equipment, Patient Health Practices/Safety, Patient Personal Hygiene/Grooming, Patient Aftercare Safety Plan - Discharge Discharge Criteria: Tolerates medication w/o severe side effects, Free of Homicidal thoughts, Free of paranoid thoughts, Free of agitation, Normal sleep pattern, Ability to care for self, Reduction of target symptoms Discharge to:: Care Home <Hannah Gomez - Last Filed: 07/20/18 14:49> - Diagnosis (1) Bipolar disorder Status: Acute Interventions: 07/20/18 14:49 Psychopharmacology/adjustment of medications as needed/ monitoring possible side effects Monitor blood level of mood stabilizers Evaluate pt on daily basis Compliance with medications and follow up appointments Suicide and homicide risk assessment and prevention, coping strategies, safety plan Relapse prevention Reduction of symptoms Improve functional status Family involvement As outpatient: cognitive behavioral therapy (2) Dementia Status: Acute Interventions: 07/20/18 14:50 Medication management, supportive therapy, family involvement, medical follow-up neurology follow-up, (3) Intractable seizures Status: Acute Interventions: 07/20/18 14:50 Neurology follow-up, med management, follow-up on labs <Kelly Nava - Last Filed: 07/20/18 17:27> Family Contact Family involvement: Family/SO is involved Family contact: Patient agrees to contact - Outside Agency [facility] Care involvment: Following patient during stay, Information-sharing
[2018-07-19] MEDS: Tmp-Smz 800 mg-160 mg DS Tab PO SCH (20:56)
[2018-07-19 21:21] LABS: URINE APPEARANCE SLIGHT-CLOUDY (CLEAR); URINE BILIRUBIN NEGATIVE (NEGATIVE); URINE BLOOD SMALL (NEGATIVE); URINE COLOR LIGHT YELLOW (YELLOW); URINE GLUCOSE (UA) NEGATIVE (NEGATIVE); URINE LEUKOCYTE ESTERASE LARGE Leu/uL (NEGATIVE); URINE PROTEIN NEGATIVE mg/dL (<30 mg/dL); URINE UROBILINOGEN 0.2 E.U./dL (<1 E.U./dL)
[2018-07-19 21:37] LABS: URINE BACTERIA FEW /hpf; URINE EPITHELIAL CELLS 0 - 2 /hpf (0-5); URINE RBC 0 - 2 /hpf (0-2)
--- NOTE | 2018-07-20 05:20 | CON ---
DATE: 07/19/2018 HISTORY OF PRESENT ILLNESS: I have been seeing her at [facility], which is assisted living and also she has been back and forth to the hospital six times, this is her seventh time in the past six weeks for questionable seizures. I saw her now in the emergency room with what the nurse examining her called a seizure, looks like it is pure anxiety. She is alert, confused, anxious upset, not doing well. Every time she has been back to the [facility], she has been feeling this way and when she gets to the hospital, she calms down. I had seen her in the emergency room hoping to get her into the Psychiatric floor, because of the six times on the hospital side she was in observation and did not show any signs of seizures and we sent her back. PAST MEDICAL HISTORY: She is a 72-year-old white female with a past medical history of multiple seizures, hypertension, bipolar, been back and forth to the hospital [facility] the [facility] seven times, and I think we are at a point where this is going to end up being an anxiety and emotional and bipolar issue more than a seizure issue. She has hypertension, seizures, wears glasses, hypothyroid, osteoporosis with a pathological fracture, anxiety, bipolar. FAMILY HISTORY: Unknown. SOCIAL HISTORY: Nonsmoker, nondrinker, no drugs. ALLERGIES: NO KNOWN DRUG ALLERGIES. MEDICATIONS: She is on aspirin, Ativan, Synthroid, Lopressor, Zyprexa, Evista, Crestor, Keppra at 1000 mg three times a day and Lamictal 200 mg three times a day. Here we can back those drugs now if this is all anxiety and stress. REVIEW OF SYSTEMS: She was very much out of it when I saw her. A little cursing, a little bit of upset, shaking the bed a little bit, not really responding to my questions, altered mental status, but she is awake and talking and looking at me every now and then, although she is shaking. She is not really having a seizure, it is more anxiety and being upset. PHYSICAL EXAMINATION GENERAL: She is a little bit toxic and uncomfortable and stressed. She is very agitated. VITAL SIGNS: She has a 98.7 temp, 91 pulse, 20 respiratory rate, 110/91 blood pressure, 100% O2 sat on room air. HEENT: Head is atraumatic and normocephalic. Extraocular muscles are intact. Pupils equally reactive to light and accommodation. Throat is moist. NECK: Supple. HEART: Regular rate. Normal S1 and S2. LUNGS: Decreased breath sounds but clear to auscultation. ABDOMEN: Soft, nontender. Positive bowel sounds. No guarding. No rebound. No CVA tenderness. EXTREMITIES: No edema. NEUROLOGIC: GCS is 15. Cranial nerves II through XII grossly intact. Speech is normal. Alert, agitated. SKIN: Warm and dry. No apparent rashes or ulcers appreciative. DIAGNOSTIC DATA: She had multiple tests done. CAT scan of the head showed normal brain. Chest x-ray showed no acute process. EKG showed normal sinus rhythm. She has a 98.5 white count, 13.9 hemoglobin, 41.8 hematocrit with 213 platelets. A 141 sodium, potassium 4.1, BUN 21, creatinine 1, GFR is 64, sugars is 81, calcium is 10.4, total bili is 0.9, AST is 36, ALT is 59, alk phos 73. Lactate hydrogenase is 633. Total creatinine kinase is 416. Troponin I is less than 0.01, total protein is 8.5. Urine is trace, moderate leukocytes, moderate bacteria, to check her for urine tract infection. Toxicology is negative. ASSESSMENT AND PLAN: I will do a UA culture and sensitivity. I am going to start her on an antibiotic. I am waiting for the culture to come back and check her labs tomorrow also. I am going follow her on the Psychiatric floor. I also called the neurologist to possibly lower her seizure medications, this is all anxiety. Thank you very much for allowing me to participate in the care of this patient. Natanael Hernandez DO
[2018-07-20] MEDS ORDERED: Levothyroxine 150 MCG TAB PO SCH (06:00)
[2018-07-20] MEDS: Levothyroxine 100 MCG TAB PO SCH (06:43)
[2018-07-20 07:22] VITALS: RESP 20
[2018-07-20 08:00] LABS: HEMOGLOBIN 12.4 g/dL (12.0-16.0); MEAN CORPUSCULAR HEMOGLOBIN 30.9 pg (25.0-35.0); MEAN CORPUSCULAR HGB CONC 32.2 g/dl (31.0-37.0); MEAN PLATELET VOLUME 9.9 fl (7.0-11.0); RBC 4.01 10^6/uL (3.5-6.1); RED CELL DISTRIBUTION WIDTH 12.9 % (11.5-14.5); WHITE BLOOD COUNT 7.1 10^3/uL (4.5-11.0)
[2018-07-20 08:16] LABS: ALB/GLOB RATIO 1.3 (1.1-1.8); ALBUMIN 3.9 g/dL (3.0-4.8); ALT/SGPT 20 U/L (7-56); AST/SGOT 42 U/L (14-36); BLOOD UREA NITROGEN 25 mg/dL (7-21); CALCIUM 9.5 mg/dL (8.4-10.5); GFR NON-AFRICAN AMERICAN > 60; HDL CHOLESTEROL 52 mg/dL (29-60)
[2018-07-20 08:22] LABS: LDL CHOLESTEROL 74 mg/dL (0-129)
[2018-07-20 08:27] LABS: FREE T4 1.47 ng/dL (0.78-2.19)
[2018-07-20] MEDS: Divalproex 500 mg DR(BID formulation) PO SCH ×2 (09:59→17:21)
[2018-07-20] MEDS: Tmp-Smz 800 mg-160 mg DS Tab PO SCH ×2 (10:00→17:21)
--- NOTE | 2018-07-20 10:30 | CP.PCM.PCO ---
Physician Communication Note - Physician Communication Note Physician Communication Note: reduce keppra to 750 po bid
--- NOTE | 2018-07-20 11:52 | PN ---
DATE: 07/20/2018 SUBJECTIVE: She is in the psychiatric unit. She had multiple questionable seizures, some anxiety and we are in the psychiatric unit trying to help with her anxiety, get her on a good regimen of medications so she does not go through the shaking to the point where the nurses feel it is a seizure, but she is a little agitated this morning, in bed, on a one-to-one. PHYSICAL EXAMINATION: VITAL SIGNS: She has a 97.2 temp, 67 pulse, 112/57 blood pressure, 20 respiratory rate and 95% O2 sat. HEENT: Head is atraumatic, normocephalic. HEART: Regular rate. LUNGS: Decreased breath sounds, but clear. ABDOMEN: Soft. EXTREMITIES: No edema. MEDICATIONS: She is on aspirin, Ativan, Bactrim for the urinary tract infection, Depakote, Evista, Keppra, Lamictal, Lipitor, Lopressor, Paxil, Synthroid and Zyprexa. LABORATORY DATA: She has a negative urine drug screen. Urine is positive for nitrites, leukocytes and bacteria. Sodium 141, potassium 4, BUN 25, creatinine 0.9, GFR is greater than 60, sugar is 76, calcium is 9.5, total bili is 0.7, AST is 42, ALT is 28, alk phos 59, total protein 6.9. Triglycerides 47, cholesterol is 136. TSH is 1.96. White count 7.1, hemoglobin 7.4, hematocrit 38.5, platelets 191. ASSESSMENT AND PLAN: She has been seen by Psychiatry. I called in Neurology to see if we can start backing down on her seizure medications since this might not be seizures that she is having. It might be more anxiety shaking and we will see how she goes. We will followup. Mary Hernandez DO
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
[2018-07-20] MEDS ORDERED: Alum-Mag Hydrox-Simethicone Susp (30 mL) PO PRN (16:57)
--- NOTE | 2018-07-20 18:56 | CON ---
DATE: 07/20/2018 HISTORY OF PRESENT ILLNESS: This is a 72-year-old female, with a past medical history of seizure, hypertension, and bipolar, who comes from [facility]. The patient looks confused with anxiety and they brought her to Psychiatry floor for further management. Now complaint of tremor of the left hand. PAST MEDICAL HISTORY: As above. SOCIAL HISTORY: Does not smoke, does not drink. HOME MEDICATIONS: Synthroid, Lopressor, Zyprexa, Keppra, and Lamictal. PHYSICAL EXAMINATION NEUROLOGIC: The patient is sitting comfortably and eating. Shaking her left hand while eating, possibly looks like an action tremor. IMPRESSION AND PLAN: Possible essential tremor in the background of a seizure and dementia. We will add Mysoline 50 mg p.o. at bedtime. Continue present management. We will follow up. Mateo Tam MD
[2018-07-21] MEDS: Levothyroxine 100 MCG TAB PO SCH (06:28)
[2018-07-21] MEDS: Divalproex 500 mg DR(BID formulation) PO SCH ×2 (10:04→18:09)
[2018-07-21] MEDS: Tmp-Smz 800 mg-160 mg DS Tab PO SCH ×2 (10:08→18:08)
--- NOTE | 2018-07-21 10:09 | CP.PCM.PCO ---
Physician Communication Note - Physician Communication Note Physician Communication Note: in one week cut keppra again to 500mg po bid
--- NOTE | 2018-07-21 13:49 | PN ---
DATE: 07/21/2018 SUBJECTIVE: I saw her in bed on a one-to-one in the psychiatric unit. She is alert. She is talking. She is still shaking her arms, but I think may be a little bit better than yesterday. She is on aspirin, Ativan, Bactrim for UTI, Depakote, Evista, Keppra, Lamictal, Lipitor, Lopressor, MiraLax, Mysoline, Paxil, Synthroid, Zofran, and Zyprexa. She was talking to me well. She understood what is going on. She is eating better. She has a one-to-one on keeping an eye on her. PHYSICAL EXAMINATION: VITAL SIGNS: 98 temperature, 79 pulse, 112/77 blood pressure, 20 respiratory rate. HEENT: Head is atraumatic, normocephalic. more coherent than the other day. HEART: Regular rate. LUNGS: Decreased breath sounds. ABDOMEN: Soft. EXTREMITIES: No edema. She is still shaking the hands and arms like an anxiety shake, not a seizure and after talking with her, I am trying to calm her down and did slowly improve. LABORATORY DATA: Labs yesterday were good. The CBC was very good. SMA-20 was very good yesterday. The thyroid is good. ASSESSMENT AND PLAN: She has a positive urinary tract infection, I put her on some antibiotics. She has a gram-positive cocci in the urine and I am hoping that will improve. She has been seen by Psychiatry and a neurologist. The neurologist came, which is good. I am hoping to get rid of some of her neurological medications because I believe most of the tremors are from anxiety and they will get back off on some of the seizure medications if possible. We will watch her closely. Mary Hernandez DO [id number]
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
[2018-07-21 18:15] VITALS: PULSE 66
[2018-07-22] MEDS: Levothyroxine 100 MCG TAB PO SCH (05:37)
[2018-07-22 07:32] VITALS: BP 160/65; TEMP 98.1
--- NOTE | 2018-07-22 10:25 | CP.PCM.PCO ---
Assessment & Plan - Assessment and Plan (Free Text) Assessment: Patient is a 72 female with history of epilepsy, bipolar disorder, anxiety, and pseudo-seizures who during group therapy session experienced what was described as shaking of upper and lower extremities bilaterally. PLANT PROTECTION SUPERINTENDENT was called and patient was brought from chair to floor. She continued to have varying movements of extremities ranging from her left upper extremity to her right upper extremity while yelling simultaneously. Plan: Assessment : Non epileptic seizure due to anxiety Plan: 1000 mg IVPB Keppra 500 mg IVPB valproic acid EEG not necessary at this time Patient can continue to be on psych floor - Functional Status Prior to Admission: Functional Current Status: Patient is communicating Impairment Code: Pseudo-seizure
--- NOTE | 2018-07-22 10:29 | PCM.RRT ---
SHAFTING CLEANER Nurse Assessment - Situation Date: 07/22/18 Time SHAFTING CLEANER was called: 09:55 SHAFTING CLEANER Responder Arrival Time: 10:00 SHAFTING CLEANER Location:: Psychiatry Unit Room Number: 519 SHAFTING CLEANER Reason for Call: Change in Mental Status, Looks Sicker SHAFTING CLEANER Called By: Other Disciplines - IV IV Inserted during SHAFTING CLEANER?: Yes IV Fluids Initiated During SHAFTING CLEANER?: attempted iv but unsuccesfully - Respiratory Oxygen Delivery Method: Room Air Received Nebulizer Treatments:: No Was the Patient Ventilated with Bag/Mask 100% O2?: No Secretions Suctioned?: No Was the Patient Intubated?: No Was the Patient Placed on a Ventilator?: No - Diagnostic Test Ordered EKG: No Chest X-Ray: No CT Scan: No CPR started during SHAFTING CLEANER?: No - Vital Signs Vital Sign: Rapid Response Vital Sign Blood Pressure 131/68 Pulse Rate 88 Respiratory Rate 20 Temperature 98.1 F Oxygen Saturation 95 - Finger Stick Blood Glucose Finger Stick Blood Glucose: 208 - Recommendations Notifications: Attending Physician I.Reason for SHAFTING CLEANER - A) Acute Change in Patient: Subjective: Patient is a 72 female with history of epilepsy, bipolar disorder, anxiety, and pseudo-seizures who during group therapy session experienced what was described as shaking of upper and lower extremities bilaterally. SHAFTING CLEANER was called and patient was brought from chair to floor. She continued to have varying movements of extremities ranging from her left upper extremity to her right upper extremity while yelling simultaneously. - Respiratory Oxygen Delivery Method: Room Air - Head Head Exam: ATRAUMATIC, NORMAL INSPECTION, NORMOCEPHALIC - Eyes Eye Exam: Normal appearance - Respiratory Exam Respiratory Exam: Clear to Ausculation Bilateral, NORMAL BREATHING PATTERN - Cardiovascular Exam Cardiovascular Exam: REGULAR RHYTHM, +S1, +S2 - GI/Abdominal Exam GI & Abdominal Exam: Soft, Normal Bowel Sounds - Extremities Exam Extremities Exam: Normal Inspection Plan - Assessment of Findings&Treatment Plan Assessment Non epileptic seizure due to anxiety Plan 1000 mg IVPB Keppra 500 mg IVPB valproic acid EEG not necessary at this time Patient can continue to be on psych floor
--- NOTE | 2018-07-22 13:52 | PN ---
DATE: 07/22/2018 SUBJECTIVE: She is resting in bed. She is very alert and talking, smiling, in good spirits, eating her breakfast this morning being fed. She is smiling, better than yesterday. She is on aspirin, Ativan, Bactrim, Depakote, Evista, Keppra, Lamictal, Lipitor, Lopressor, Maalox, Mysoline, Paxil, Seroquel, Synthroid, Tylenol and Zofran. PHYSICAL EXAMINATION: VITAL SIGNS: She has a 98.1 temperature, 66 pulse, 160/65 blood pressure, 20 respiratory rate. HEENT: Head is atraumatic, normocephalic. She is looking at me better, talking better. No shaking at this time. HEART: Regular rate. LUNGS: Decreased breath sounds. ABDOMEN: Soft. EXTREMITIES: No edema. MEDICATIONS: She is currently on aspirin, Ativan, Bactrim, Depakote, Evista, Keppra, Lamictal, Lipitor, Lopressor, Maalox, Mysoline, Paxil, Seroquel, Synthroid, Tylenol and Zofran. LABORATORY DATA: She has a 7.1 white count, 12.4 hemoglobin and 191 platelets. Sodium 141, potassium 4, BUN 25, creatinine 0.9, GFR is greater than 60, sugar is 208, AST is 42, ALT is 20, alk phos 59, total protein 6.9. TSH is 1.96. Hopefully, she will continue to improve. She is being seen by Neurology and Psychiatry. We are trying to cut down her Keppra as per Neurology and hopefully she will improve. Natanael Hernandez DO
[2018-07-22] MEDS ORDERED: Valproate 500 MG in Sodium Chloride 0.9% 100 ML IVPB SCH (14:00)
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
== END 2018-07-22 10:13 | disposition short-term general hospital (02) | DRG 885 ==
LOC: ED 02:55 → ERH 10:46 → PSYC 12:28
PROVIDERS: ADMIT Psychiatry & Neurology Psychiatry; ATTEND Psychiatry & Neurology Psychiatry
DX: F31.9 Bipolar disorder, unspecified (principal); N39.0 Urinary tract infection, site not specified; M80.00XA Age-related osteoporosis with current pathological fracture, unspecified site, initial encounter for fracture; G40.89 Other seizures; F41.1 Generalized anxiety disorder; G25.0 Essential tremor; B96.20 Unspecified Escherichia coli [E. coli] as the cause of diseases classified elsewhere; E03.9 Hypothyroidism, unspecified; F03.90 Unspecified dementia, unspecified severity, without behavioral disturbance, psychotic disturbance, mood disturbance, and anxiety; I10 Essential (primary) hypertension; Z79.82 Long term (current) use of aspirin

== ENCOUNTER 2018-07-22 10:13 | Inpatient (IN) | payer MEDICARE, BC ==
--- NOTE | 2018-07-22 10:48 | ED PDOC ---
Arrival/HPI - General Chief Complaint: Seizure - History of Present Illness Narrative History of Present Illness (Text): 07/22/18 10:40 72 year old female, whose past medical history includes seizure disorder, hypertension and bipolar disorder, presents to the ED via EMS for a seizure. Patient, who is a rapid response admission, was on the [facility] floor [facility]ing [facility] when she started having generalized convulsions during group activities. Patient was given 2 Ativan for the seizure, which improved symptoms. Patient's anti-epileptic dosage has been recently decreased as per Dr. Rothman(psychiatry). A more complete HPI was unable to be obtained due to the patient's clinical condition Time/Duration: Prior to Arrival Symptom Onset: Sudden Symptom Course: Improving Activities at Onset: Light Context: Other (Intermediate) Past Medical History - Provider Review Nursing Documentation Reviewed: Yes - Travel History Have you recently traveled outside [place] w/in the past 3 mons?: No - Infectious Disease Hx of Infectious Diseases: None - Reproductive Menopause: Yes - Cardiac Hx Hypertension: Yes - Pulmonary Hx Respiratory Disorders: No - Neurological Hx Neurological Disorder: Yes Hx Seizures: Yes - HEENT Hx HEENT Disorder: (wears glasses) - Renal Hx Renal Disorder: No - Endocrine/Metabolic Hx Hypothyroidism: Yes - Hematological/Oncological Hx Blood Disorders: No - Integumentary Hx Dermatological Disorder: No - Musculoskeletal/Rheumatological Hx Falls: Yes Hx Osteoporosis: Yes (with pathological fracture) - Gastrointestinal Hx Gastrointestinal Disorders: No - Genitourinary/Gynecological Hx Genitourinary Disorders: No - Psychiatric Hx Psychophysiologic Disorder: Yes Hx Substance Use: No - Anesthesia Hx Anesthesia: No Family/Social History - Physician Review Nursing Documentation Reviewed: Yes Family/Social History: Unknown Family HX Smoking Status: Never Smoked Hx Alcohol Use: No Hx Substance Use: No Allergies/Home Meds Allergies/Adverse Reactions: Allergies No Known Allergies Allergy (Verified 07/22/18 10:17) Home Medications: Home Meds Medication Instructions Recorded Confirmed Aspirin [Adult Aspirin] 81 mg PO DAILY 07/11/18 07/22/18 Levothyroxine [Synthroid] 75 mcg PO DAILY 07/11/18 07/22/18 Metoprolol Tartrate [Lopressor] 25 mg PO BID 07/11/18 07/22/18 Raloxifene [Evista] 1 tab PO DAILY 07/11/18 07/22/18 levETIRAcetam [Keppra] 4 tab PO TID 07/11/18 07/22/18 Lamotrigine [Lamictal] 200 mg PO TID 07/16/18 07/22/18 Review of Systems - Review of Systems Systems not reviewed;Unavailable: Acuity of Condition (Patient is confused, alert and oriented x 1) Physical Exam - Physical Exam Physical Exam Limitations: Uncooperative, Other (Patient confused) Temperature: Afebrile Blood Pressure: Hypertensive Pulse: Regular Respiratory Rate: Normal Appearance: Positive for: Well-Appearing, Non-Toxic, Uncomfortable Mental Status: Positive for: Confused, other (alert and oriented x 1) - Systems Exam Neurological: Present: Other (sensations intact) Psychiatric: Present: Alert Medical Decision Making ED Course and Treatment: 07/22/18 10:50 Impression: 72 year old female with seizure Plan: -- Head CT -- Labs -- Chest X-Ray -- Urinalysis -- Reassess and disposition Prior Visits: Notes and results from previous visits were reviewed. Progress Notes: 07/22/18 00:27 Labs reviewed with moderate bacteria and esterases noted on UA. Rocephin ordered. CTH negative for intracranial pathology. Case discussed in detail with Dr. Hernandez(PCP), who accepts patient under his se rvice and agrees with ED's management plan. He requests Dr. Topete(infectious disease) as consult. - Lab Interpretations Lab Results: 07/22/18 10:15 07/22/18 10:15 Lab Results 07/22/18 12:00: Urine Color Yellow, Urine Appearance Clear, Urine pH 6.5, Ur Specific [place] 1.025, Urine Protein 30 H, Urine Glucose (UA) Negative, Urine Ketones 15 H, Urine Blood Trace-intact H, Urine Nitrate Negative, Urine Bilirubin Negative, Urine Urobilinogen 1.0 H, Ur Leukocyte Esterase Moderate H, Urine RBC 5 - 10 H, Urine WBC 20 - 25 H, Ur Epithelial Cells 10 - 12 H, Jerardo phous Sediment Few, Urine Bacteria Many, Coarse Granular Casts Trace, Urine Other Uyeast 07/22/18 10:15: Alcohol, Quantitative < 10 07/22/18 10:15: Salicylates < 1 L, Acetaminophen < 10.0 L 07/22/18 10:15: Sodium 139, Potassium 4.0, Chloride 102, Carbon Dioxide 26, Anion Gap 14, BUN 17, Creatinine 0.7, Est GFR ( Amer) > 60, Est GFR (Non- Af Amer) > 60, Random Glucose 133 H, Calcium 9.7, Magnesium 2.2, Total Bilirubin 0.5, AST 36, ALT 14, Alkaline Phosphatase 52, Total Protein 6.9, Albumin 4.1, Globulin 2.9, Albumin/Globulin Ratio 1.4 07/22/18 10:15: WBC 7.2, RBC 4.16, Hgb 13.1, Hct 40.0, MCV 96.2, MCH 31.5, MCHC 32.8, RDW 12.9, Plt Count 195, MPV 10.0, Neut % (Auto) 47.3 L, Lymph % (Auto) 37.2 H, [place] % (Auto) 14.5 H, Eos % (Auto) 0.7 L, Baso % (Auto) 0.3, Lymph # (Auto) 2.7, [place] # (Auto) 1.1 H, Eos # (Auto) 0.1, Baso # (Auto) 0.02, Absolute Neuts (auto) 3.43 I have reviewed the lab results: Yes - RAD Interpretation Narrative RAD Interpretations (Text): 07/22/18 12:[address] IMPRESSION: No acute intracranial pathology identified. Chest X-Ray IMPRESSION: No active disease. Radiology Orders: 07/22/18 10:26 HEAD W/CONTRAST [CT] Stat 07/22/18 10:27 CHEST PORTABLE [RAD] Stat 07/22/18 10:28 HEAD W/O CONTRAST [CT] Stat - EKG Interpretation EKG Interpretation (Text): 07/22/18 13:40 EKG: -- NSR @ 74 bpm. -- No ST elevation. - Medication Orders Current Medication Orders: 07/28/18 06:24 Discontinued Medications Aspirin (Ecotrin) 81 mg PO DAILY [facility] Last Admin: 07/27/18 09:47 Dose: 81 mg Atorvastatin Calcium (Lipitor) 20 mg PO HS [facility] Last Admin: 07/27/18 00:01 Dose: 20 mg Levetiracetam (Keppra 1000mg/100ml Ns) 100 mls @ 300 mls/hr IVPB ONCE ONE Stop: 07/22/18 12:06 Last Admin: 07/22/18 12:13 Dose: 300 mls/hr eMAR Start Stop Document 07/22/18 12:13 MA (Rec: 07/22/18 12:13 MA [id number]) Intravenous Solution Start Date 07/22/18 Start Time 12:13 Valproate Sodium 500 mg/ (Sodium Chloride) 105 mls @ 100 mls/hr IVPB ONCE ONE Stop: 07/22/18 12:50 Last Admin: 07/22/18 12:35 Dose: 100 mls/hr eMAR Start Stop Document 07/22/18 12:35 MA (Rec: 07/22/18 12:35 MA [id number]) Intravenous Solution Start Date 07/22/18 Start Time 12:35 Ceftriaxone Sodium (Rocephin 1 Gram Ivpb) 1 gm in 100 mls @ 100 mls/hr IVPB STAT STA; Protocol Stop: 07/22/18 13:19 Last Admin: 07/22/18 13:37 Dose: 100 mls/hr eMAR Start Stop Document 07/22/18 13:37 MA (Rec: 07/22/18 13:37 MA [id number]) Intravenous Solution Start Date 07/22/18 Start Time 13:37 Sodium Chloride (Sodium Chloride 0.9%) 1,000 mls @ 999 mls/hr IV .Q1H1M STA Stop: 07/22/18 13:24 Last Admin: 07/22/18 12:34 Dose: 999 mls/hr eMAR Start Stop Document 07/22/18 12:34 MA (Rec: 07/22/18 12:34 MA [id number]) Intravenous Solution Start Date 07/22/18 Start Time 12:34 Ampicillin 500 mg/ Sodium (Chloride) 100 mls @ 200 mls/hr IVPB Q6 [facility]; Protocol Last Admin: 07/26/18 06:13 Dose: 200 mls/hr eMAR Start Stop Document 07/26/18 06:13 PCO (Rec: 07/26/18 06:14 PCO [id number] Intravenous Solution Start Date 07/26/18 Start Time 06:14 End Date 07/26/18 End time 06:45 Total Infusion Time 31 Influenza Virus Vaccine (Flucelvax Quad 7599-8679 Syr) 60 mcg IM .ONCE ONE Stop: 07/22/18 17:32 Lamotrigine (Lamictal) 200 mg PO TID [facility] Last Admin: 07/27/18 18:20 Dose: Not Given Non-Admin Reason: Patient Refused Behavioural Document 07/27/18 18:20 ST (Rec: 07/27/18 18:20 [id number] Maintenance Maintenance Dose Yes Levetiracetam (Keppra) 1,000 mg PO TID [facility] Last Admin: 07/27/18 18:19 Dose: Not Given Non-Admin Reason: Patient Refused Levothyroxine Sodium (Synthroid) 75 mcg PO ACB [facility] Last Admin: 07/27/18 10:07 Dose: 75 mcg Lorazepam (Ativan) 1 mg PO TID [facility]; Protocol Last Admin: 07/24/18 13:33 Dose: 1 mg Behavioural Document 07/24/18 13:33 MEME (Rec: 07/24/18 13:34 [id number]) Maintenance Maintenance Dose Yes Nonmedicinal Nonmedicinal Interventions Redirect Lorazepam (Ativan) 0.5 mg IVP Q6H PRN; Protocol PRN Reason: Anxiety Last Admin: 07/24/18 00:11 Dose: 0.5 mg IVP Administration Document 07/24/18 00:11 SIL (Rec: 07/24/18 00:12 SIL [facility] [id number] Charges for Administration # of IVP Administrations 1 Behavioural Document 07/24/18 00:11 SIL (Rec: 07/24/18 00:12 SIL [facility] [id number] Maintenance Maintenance Dose Yes Nonmedicinal Nonmedicinal Interventions Redirect Behavior Behavior for Medication: Anxiety Re-Assess: Reassess Psych Meds Document 07/24/18 00:41 SIL (Rec: 07/24/18 21:16 SIL [facility] [id number] Reassess Psych Med Effective Lorazepam (Ativan) 1 mg PO AMHS [facility]; Protocol Last Admin: 07/24/18 22:29 Dose: 1 mg Behavioural Document 07/24/18 22:29 SIL (Rec: 07/24/18 22:29 SIL [facility] [id number][place] Maintenance Maintenance Dose Yes Nonmedicinal Nonmedicinal Interventions Redirect Behavior Behavior for Medication: Anxiety Lorazepam (Ativan) 0.5 mg PO BID [facility]; Protocol Last Admin: 07/27/18 18:23 Dose: 0.5 mg Behavioural Document 07/27/18 18:23 ST (Rec: 07/27/18 18:23 [facility] [id number] Maintenance Maintenance Dose Yes Lorazepam (Ativan) 0.5 mg PO [facility]; Protocol Last Admin: 07/27/18 00:02 Dose: 0.5 mg Behavioural Document 07/27/18 00:02 PCO (Rec: 07/27/18 00:02 PCO [id number]) Maintenance Maintenance Dose Yes Behavior Behavior for Medication: Anxiety Metoprolol Tartrate (Lopressor) 25 mg PO BID [facility] Last Admin: 07/27/18 18:20 Dose: Not Given Non-Admin Reason: Patient Refused Olanzapine (Zyprexa) 2.5 mg PO BID [facility]; Protocol Last Admin: 07/24/18 10:36 Dose: Not Given Non-Admin Reason: d/cd Behavioural Document 07/24/18 10:36 [facility] (Rec: 07/24/18 19:38 [facility] [id number]) Maintenance Maintenance Dose Yes Nonmedicinal Nonmedicinal Interventions Redirect Behavior Behavior for Medication: Anxiety Paroxetine HCl (Paxil) 10 mg PO [facility] Last Admin: 07/25/18 22:28 Dose: 10 mg Pneumococcal Polyvalent Vaccine (Pneumovax 23 Vaccine) 0.5 ml IM .ONCE ONE Stop: 07/22/18 17:32 Quetiapine Fumarate (Seroquel) 25 mg PO [facility]; Protocol Last Admin: 07/24/18 22:28 Dose: 25 mg Quetiapine Fumarate (Seroquel) 12.5 mg PO [facility]; Protocol Last Admin: 07/25/18 22:26 Dose: 12.5 mg Behavioural Document 07/25/18 22:26 PCO (Rec: 07/25/18 22:27 PCO [id number]) Maintenance Maintenance Dose Yes Nonmedicinal Nonmedicinal Interventions Redirect Behavior Behavior for Medication: Anxiety Re-Assess: Reassess Psych Meds Document 07/25/18 23:26 PCO (Rec: 07/26/18 06:14 PCO [facility] [id number]) Reassess Psych Med Effective Quetiapine Fumarate (Seroquel) 12.5 mg PO [facility]; Protocol Last Admin: 07/27/18 00:02 Dose: 12.5 mg Behavioural Document 07/27/18 00:02 PCO (Rec: 07/27/18 00:02 PCO [id number]) Maintenance Maintenance Dose Yes Nonmedicinal Nonmedicinal Interventions Therapeutic Communication Behavior Behavior for Medication: Anxiety Raloxifene HCl (Evista) 60 mg PO DAILY [facility] Last Admin: 07/27/18 09:47 Dose: 60 mg Thiamine HCl (Vitamin B1 Tab) 100 mg PO DAILY [facility] Last Admin: 07/27/18 09:47 Dose: 100 mg - Scribe Statement The provider has reviewed the documentation as recorded by the Isai Nguyen emma Provider Scribe Attestation: All medical record entries made by the Isai were at my direction and personally dictated by me. I have reviewed the chart and agree that the record accurately reflects my personal performance of the history, physical exam, medi rodolfo decision making, and the department course for this patient. I have also personally directed, reviewed, and agree with the discharge instructions and disposition. Disposition/Present on Arrival - Present on Arrival Any Indicators Present on Arrival: No History of DVT/PE: No History of Uncontrolled Diabetes: No Urinary Catheter: No History of Decub. Ulcer: No History Surgical Site Infection Following: None - Disposition Have Diagnosis and Disposition been Completed?: Yes Diagnosis: UTI (urinary tract infection) Disposition: HOSPITALIZED Disposition Time: 12:00 Patient Plan: Admission Condition: GOOD
[2018-07-22 11:01] LABS: BASO # 0.02 K/mm3 (0.0-2.0); BASO % 0.3 % (0.0-3.0); EOS # 0.1 (0.0-0.7); EOS % 0.7 % (1.5-5.0); HEMOGLOBIN 13.1 g/dL (12.0-16.0); LYMPH # 2.7 (1.2-3.4); LYMPH % 37.2 % (22.0-35.0); MEAN CELL VOLUME 96.2 fl (80.0-105.0); MEAN CORPUSCULAR HEMOGLOBIN 31.5 pg (25.0-35.0); MEAN CORPUSCULAR HGB CONC 32.8 g/dl (31.0-37.0); MONO # 1.1 (0.1-0.6); MONO % 14.5 % (1.0-6.0); RBC 4.16 10^6/uL (3.5-6.1); RED CELL DISTRIBUTION WIDTH 12.9 % (11.5-14.5); WHITE BLOOD COUNT 7.2 10^3/uL (4.5-11.0)
[2018-07-22 11:15] LABS: ACETAMINOPHEN < 10.0 ug/ml (10.0-20.0); SALICYLATE < 1 mg/dL (2.0-20.0)
[2018-07-22 11:24] LABS: ALB/GLOB RATIO 1.4 (1.1-1.8); ALBUMIN 4.1 g/dL (3.0-4.8); ALT/SGPT 14 U/L (7-56); AST/SGOT 36 U/L (14-36); BLOOD UREA NITROGEN 17 mg/dL (7-21); CALCIUM 9.7 mg/dL (8.4-10.5); GFR NON-AFRICAN AMERICAN > 60
--- NOTE | 2018-07-22 11:26 | RAD ---
Date of service: 07/22/2018 HISTORY: s/p seizure COMPARISON: 07/19/2018 TECHNIQUE: 1 view obtained. FINDINGS: LUNGS: No active pulmonary disease. PLEURA: No significant pleural effusion identified, no pneumothorax apparent. CARDIOVASCULAR: No aortic atherosclerotic calcification present. Normal cardiac size. No pulmonary vascular congestion. OSSEOUS STRUCTURES: No significant abnormalities. VISUALIZED UPPER ABDOMEN: Normal. OTHER FINDINGS: None. IMPRESSION: No active disease.
--- NOTE | 2018-07-22 11:31 | CT ---
Date of service: 07/22/2018 PROCEDURE: CT HEAD WITHOUT CONTRAST. HISTORY: s/p seizure COMPARISON: Noncontrast head CT performed 07/19/18 TECHNIQUE: Axial computed tomography images were obtained through the head/brain without intravenous contrast. Radiation dose: Total exam DLP = 1060.55 mGy-cm. This CT exam was performed using one or more of the following dose reduction techniques: Automated exposure control, adjustment of the mA and/or kV according to patient size, and/or use of iterative reconstruction technique. FINDINGS: Streak artifact obscures evaluation of the skull base. HEMORRHAGE: No intracranial hemorrhage. BRAIN: Diffuse atrophy with prominence of the ventricles and sulci noted. No mass effect or edema. The bailey-white matter differentiation appears intact. Please note that MRI with diffusion imaging is more sensitive in the detection of acute ischemic event. VENTRICLES: No hydrocephalus. CALVARIUM: Unremarkable. PARANASAL SINUSES: Unremarkable as visualized. No significant inflammatory changes. MASTOID AIR CELLS: Unremarkable as visualized. No inflammatory changes. OTHER FINDINGS: None. IMPRESSION: No acute intracranial pathology identified.
[2018-07-22] MEDS ORDERED: levETIRAcetam 1000mg/100ml NS 100 ML IVPB ONE (11:47)
[2018-07-22] MEDS ORDERED: Valproate 500 MG in Sodium Chloride 0.9% 100 ML IVPB ONE (11:48)
[2018-07-22 12:18] LABS: PH,URINE 6.5 (4.7-8.0); URINE APPEARANCE CLEAR (CLEAR); URINE BILIRUBIN NEGATIVE (NEGATIVE); URINE BLOOD TRACE-INTACT (NEGATIVE); URINE COLOR YELLOW (YELLOW); URINE GLUCOSE (UA) NEGATIVE (NEGATIVE); URINE LEUKOCYTE ESTERASE MODERATE Leu/uL (NEGATIVE); URINE PROTEIN 30 mg/dL (<30 mg/dL)
[2018-07-22] MEDS ORDERED: cefTRIAXone 1 gm 1 GM/100 ML BAG IVPB STA (12:20)
[2018-07-22] MEDS ORDERED: Sodium Chloride 0.9% 1,000 ML IV STA (12:24)
[2018-07-22 12:31] LABS: URINE WBC 20 - 25 /hpf (0-6)
[2018-07-22 12:32] LABS: URINE BACTERIA MANY /hpf
[2018-07-22 12:34] LABS: URINE AMORPHOUS SEDIMENT FEW /hpf; URINE COARSE GRANULAR CAST TRACE /hpf
[2018-07-22 17:31] VITALS: BMI 23.9
[2018-07-22] MEDS ORDERED: Pneumococcal 23-Valent Vaccine IM ONE (17:31)
[2018-07-22] MEDS ORDERED: Influenza Vaccine 60 mcg/0.5 mL SYR (4YR UP) IM ONE (17:31)
--- NOTE | 2018-07-22 18:33 | CON ---
DATE: 07/22/2018 NEUROLOGY CONSULTATION CHIEF COMPLAINT: Breakthrough seizure. HISTORY OF PRESENT ILLNESS: This is a 72-year-old woman with history of seizure disorder/pseudoseizure where her medications have been adjusted, recently had Keppra. She is on Psychiatry for underlying anxiety disorder, which likely is causing her events. She was originally on Keppra, I reduced to 750 mg p.o. two times a day from Keppra 1000 mg three times a day and she had a questionable breakthrough seizure versus an anxiety attack. We will place her back on Keppra 1000 mg three times a day and continue with Depakote as well as her Trileptal and therefore will keep her on those medications. She is a very anxious woman and still needs Psychiatry to follow her while she is on the medical floor. The patient will definitely need to see an epileptology clinic as an outpatient from here rather than going to the alf. PAST MEDICAL HISTORY: As above. SOCIAL HISTORY: No illicit drug use, smoking, or EtOH abuse. REVIEW OF SYSTEMS: A 14-point review of systems is negative except as per the HPI. FAMILY HISTORY: Noncontributory. MEDICATIONS: Reviewed by nurse's reconciliation sheet. PHYSICAL EXAMINATION GENERAL: The patient seen up in bed. No acute distress. VITAL SIGNS: Temperature 97.7, pulse rate of 67, blood pressure 132/60 respiratory rate 20, and oxygen saturation 97% on room air. HEENT: Atraumatic and normocephalic. PERRLA. Extraocular muscles intact. NECK: Supple. No JVD. No adenopathy noted. LUNGS: Clear to auscultation. No adventitious sounds. HEART: S1 and S2. Normal rate and rhythm. No murmurs, rubs, or gallops. ABDOMEN: Soft, nontender, and nondistended. Bowel sounds present. EXTREMITIES: No clubbing. No cyanosis. Peripheral pulses are 2+ felt bilaterally. NEUROLOGIC: The patient is alert, oriented to person, place, month, and year. She is very anxious. Slow thought process. Speech is fluent without any errors. No pronator drift seen. No aphasia noted. Motor exam; moves all extremities equally. No pronator drift seen. Sensory exam; light touch, pinprick, proprioception and vibration are intact. DTRs are 2+. Coordination; [id number] is intact. No dysmetria noted. Gait is deferred for now. LABORATORY DATA: Sodium is 139, potassium 4, chloride 202, carbon dioxide 26, BUN 14, creatinine 17 and random glucose is 133. 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 We will return her Keppra back to original dose of 1000 mg p.o. three times a day and in addition continue with Depakote 500 mg p.o. two times a day and Lamictal 200 mg p.o. two times a day. There is no further seizure adjustments that can be done at this point. She will need to be followed with Psychiatry as well while she is on the medical floor, in addition need to see an outpatient epileptologist. At this time, continue current present medical management. Monitor her electrolytes. Thank you for this consult. James Tam MD
--- NOTE | 2018-07-22 20:21 | CON ---
DATE OF CONSULTATION: 07/22/2018 The patient is seen earlier today in room 576, bed 2. CHIEF COMPLAINT: Urinary tract infection x1 day duration. HISTORY OF PRESENT ILLNESS: This is a 72-year-old female with history of seizures, hypertension, bipolar, osteoporosis, who is admitted on account of seizures and she was also complaining of urinary tract symptoms and a urinary tract urine culture done on 07/19, which showed Enterococcus. REVIEW OF SYSTEMS: Reveals the patient has frequency and dysuria. No fevers, no chills, no back pain, no abdominal or pelvic pain. PAST MEDICAL HISTORY: Significant for seizures, hypertension, bipolar, osteoporosis. PAST SURGICAL HISTORY: Noncontributory. ALLERGIES: THE PATIENT HAS NO KNOWN ALLERGIES. MEDICATIONS: Medications at home are reviewed. PHYSICAL EXAMINATION: GENERAL: The patient is in bed. She is confused as her baseline. VITAL SIGNS: On exam, temperature is 98, blood pressure is 150/60, respiratory rate of 18, heart rate of 73. HEENT: Examination of HEENT is unremarkable. NECK: Supple. LUNGS: Have decreased breath sounds. HEART: Normal S1, S2. ABDOMEN: Soft, nontender. LABORATORY DATA: Laboratory examination reveals a white count of 7.2, hemoglobin of 13, platelets of 195. Chemistries are noted and urinalysis is noted and toxicology is noted. Microbiology is reviewed. ASSESSMENT AND PLAN: A 72-year-old female with seizures, hypertension, bipolar, osteoporosis with; 1. Symptomatic Enterococcus urinary tract infection, sensitive to ampicillin. We will treat with ampicillin p.o. x5-7 days. Case discussed with Dr. Natanael Hernandez. The patient's confusion is at baseline as per Dr. Natanael Hernandez. David العراقي MD
--- NOTE | 2018-07-22 22:03 | HP ---
DATE OF EXAM: 07/22/2018 HISTORY OF PRESENT ILLNESS: She was in the psychiatric unit for her bipolar and depression and she had a questionable pseudoseizure up in the psych unit and was brought down to the emergency room. After testing, she found UTI which she was on antibiotics for in the psychiatric floor, now she is on IV antibiotics without any postictal issues right now. She is a 72-year-old white female with history of seizures, hypertension, bipolar, and UTI, this is a seventh time back and forth to the hospital in the last 6 weeks. She has a rapid response in the psychiatric floor and brought down to the ER. She had generalized convulsions versus pseudoseizures, was given Ativan and she improved fairly quickly. She has hypertension, seizures, hypothyroid, and pathological fracture falls history. FAMILY HISTORY: Unknown family history. SOCIAL HISTORY: No smoking. No drinking. No drugs. ALLERGIES: NO KNOWN DRUG ALLERGIES. MEDICATIONS: She is on aspirin, Ativan, Synthroid, Lopressor, Zyprexa, Effexor, Crestor, Keppra, and Lamictal very high doses. REVIEW OF SYSTEMS: She is alert, now comfortable. No chest pain or shortness of breath. No abdominal pain. No nausea, vomiting, constipation, or diarrhea. No skin issues. A little bit weak. She did some physical therapy and a little bit confused that is her baseline, oriented x1, but pleasant. PHYSICAL EXAMINATION: VITAL SIGNS: No temperature was done at this time, 63 pulse, 131/70 blood pressure, 16 respiratory rate, and 95% O2 sat on room air. HEENT: Head; atraumatic and normocephalic. Extraocular muscles are intact. Pupils are equal and reactive to light. Throat is moist. NECK: Supple. HEART: Regular rate. LUNGS: Decreased breath sounds, but clear to auscultation. ABDOMEN: Soft and nontender. Positive bowel sounds. EXTREMITIES: Have no edema. She can move all four extremities. NEUROLOGIC: Alert and oriented x1 that is her baseline, little bit confused, but about it. LABORATORY DATA: She had multiple tests done. Chest x-ray was clear. Head CT was clear. She has a salicylates were less than 1. Acetaminophen was less than 10. Alcohol is less than 10. She had a moderate leukocytes, many bacteria on the urine. She has sodium 139, potassium 4, BUN 17, creatinine 0.7, GFR is greater than 60, sugar is 133, calcium is 9.7, magnesium is 2.2, and total bili is 0.5. AST is 36, ALT is 14, alk phos is 52, and total protein is 6.9. White count is 7.2, hemoglobin 13.1, hematocrit 40, and platelets 195. ASSESSMENT AND PLAN: She was in the psychiatric unit with questionable seizure, brought down to the emergency room and was found to have urinary tract infection. I did not want to take her back to the unit of the psych unit, so she is here on IV antibiotics and also neurological, Infectious Disease, and psychological consults. She will get physical therapy, back on her medications, and we will check her labs tomorrow. Out of bed to chair. Manisha Taylor with seizures and urinary tract infection. Thank you very much. Natanael Hernandez DO MTDD
--- NOTE | 2018-07-22 22:38 | CARD ---
APPROVED REPORT Date of service: 07/22/2018 EKG Measurement Heart [id number] <Conclusion> Normal sinus rhythm ST abnormalities-minor Abnormal ECG
[2018-07-23 07:36] LABS: HEMOGLOBIN 13.5 g/dL (12.0-16.0); MEAN CELL VOLUME 95.6 fl (80.0-105.0); MEAN CORPUSCULAR HEMOGLOBIN 31.2 pg (25.0-35.0); MEAN CORPUSCULAR HGB CONC 32.6 g/dl (31.0-37.0); MEAN PLATELET VOLUME 10.3 fl (7.0-11.0); RBC 4.33 10^6/uL (3.5-6.1); RED CELL DISTRIBUTION WIDTH 12.9 % (11.5-14.5); WHITE BLOOD COUNT 6.8 10^3/uL (4.5-11.0)
[2018-07-23 08:11] LABS: ALB/GLOB RATIO 1.3 (1.1-1.8); ALBUMIN 3.9 g/dL (3.0-4.8); ALT/SGPT 13 U/L (7-56); AST/SGOT 38 U/L (14-36); BLOOD UREA NITROGEN 13 mg/dL (7-21); CALCIUM 9.7 mg/dL (8.4-10.5); GFR NON-AFRICAN AMERICAN > 60
[2018-07-23] MEDS: Levothyroxine 75 MCG TAB PO SCH (10:09)
--- NOTE | 2018-07-23 13:02 | CP.PCM.PN ---
Subjective - Date & Time of Evaluation Date of Evaluation: 07/23/18 Time of Evaluation: 11:25 - Subjective Subjective: Comfortable in bed, not in distress. Objective - Vital Signs/Intake and Output Vital Signs (last 24 hours): Temp Pulse Resp BP Pulse Ox 98.1 F 66 18 113/63 96 07/23/18 06:00 07/23/18 06:00 07/23/18 06:00 07/23/18 06:00 07/23/18 06:00 Intake and Output: 07/23/18 07/23/18 06:59 18:59 Intake Total 600 Balance 600 - Medications Medications: Current Medications Aspirin (Ecotrin) 81 mg PO DAILY [facility] Last Admin: 07/23/18 10:06 Dose: 81 mg Atorvastatin Calcium (Lipitor) 20 mg PO HS [facility] Last Admin: 07/22/18 23:40 Dose: 20 mg Ampicillin 500 mg/ Sodium (Chloride) 100 mls @ 200 mls/hr IVPB Q6 [facility]; Protocol Last Admin: 07/23/18 05:01 Dose: 200 mls/hr Lamotrigine (Lamictal) 200 mg PO TID [facility] Last Admin: 07/23/18 10:07 Dose: 200 mg Levetiracetam (Keppra) 1,000 mg PO TID [facility] Last Admin: 07/23/18 10:06 Dose: 1,000 mg Levothyroxine Sodium (Synthroid) 75 mcg PO ACB [facility] Last Admin: 07/23/18 10:09 Dose: 75 mcg Lorazepam (Ativan) 1 mg PO TID [facility]; Protocol Last Admin: 07/23/18 10:07 Dose: 1 mg Lorazepam (Ativan) 0.5 mg IVP Q6H PRN; Protocol PRN Reason: Anxiety Last Admin: 07/23/18 12:17 Dose: 0.5 mg Metoprolol Tartrate (Lopressor) 25 mg PO BID [facility] Last Admin: 07/23/18 10:07 Dose: 25 mg Olanzapine (Zyprexa) 2.5 mg PO BID [facility]; Protocol Last Admin: 07/23/18 10:10 Dose: 2.5 mg Paroxetine HCl (Paxil) 10 mg PO HS [facility] Raloxifene HCl (Evista) 60 mg PO DAILY [facility] Last Admin: 07/23/18 10:10 Dose: 60 mg - Labs Labs: 07/23/18 06:10 07/23/18 06:10 - Constitutional Appears: Chronically Ill - Head Exam Head Exam: NORMAL INSPECTION - Respiratory Exam Respiratory Exam: Decreased Breath Sounds - Cardiovascular Exam Cardiovascular Exam: +S1, +S2 - GI/Abdominal Exam GI & Abdominal Exam: Soft. absent: Tenderness Assessment and Plan - Assessment and Plan (Free Text) Plan: Assessment UTI with Enterococcus bipolar disorder seizure disorder HTN osteoporosis Plan continue Ampicillin for 4-6 more days continue to monitor clinically
--- NOTE | 2018-07-23 19:34 | CON ---
DATE: 07/23/2018 HISTORY OF PRESENT ILLNESS: The patient is a 72-year-old female with a history of seizure disorder, bipolar disorder, generalized anxiety disorder, transferred from [facility] for altered mental status and to a psychiatric unit due to increased agitation and refusing to take her medications. On the psychiatric unit, the patient had been rambling, incoherent, difficult to redirect, and histrionic. The patient was transferred again to the medical floor where the psychiatry was consulted to continue treatment. POA; of note the patient has a power of regional recruiter who is aware of the current patient's status. I reviewed recent notes. I met with patient at bedside and it is very difficult to start a conversation with her because she is repetitive, rambling, and making illogical statements. She also appears acutely anxious. She has been restless on the unit, trying to get out of bed multiple times and yelling out to no one in particular. Her insight and judgment continue to be poor. Impulse control is poor as well. Vital signs and labs were reviewed. RELEVANT PSYCHIATRIC MEDICATIONS: Include Zyprexa 2.5 mg two times a day, Ativan 0.5 IV every 6 hours p.r.n., Ativan 1 mg p.o. three times a day scheduled. IMPRESSION: Likely dementia, psychosis with consideration for delirium due to urinary tract infection. RECOMMENDATIONS: We will continue with current treatment and plan. The patient was recently transferred due to seizure like activity causing a rapid response. She also has a UTI, likely contributing to her increased confusion, disinhibition, disorganization, and psychosis. Psychiatry continues to follow up. We will monitor her progress and monitor her medications and determine the necessity of either increasing them or changing them. Beth Gamez MD DEDRA
--- NOTE | 2018-07-23 21:28 | PN ---
DATE: 07/23/2018 SUBJECTIVE: She is resting comfortably in bed. She is alert, talking very strongly. She ate some. She is asking to be discharged. She is on ampicillin IV, Ativan, Ecotrin, Evista, Keppra, Lamictal, Lipitor, metoprolol, Paxil, Synthroid, and Zyprexa. PHYSICAL EXAMINATION: VITAL SIGNS: She has a 97.9 temperature, 68 pulse, 178/75 blood pressure, 16 respiratory rate and 99% O2 sat on room air. HEENT: Head is atraumatic and normocephalic. HEART: Regular rate. LUNGS: Decreased breath sounds. ABDOMEN: Soft. EXTREMITIES: No edema. PSYCHIATRIC: She is very off mentally this morning. LABORATORY DATA: She has a 6.8 white count, 13.5 hemoglobin, 41.5 hematocrit with 197 platelets. Sodium 140, potassium 4.1, BUN 13, creatinine 0.7. GFR is greater than 60. Sugar is 77, calcium 9.7, total bili is 0.68, AST is 38, ALT is 39, alkaline phosphatase 63, and troponin is 6.9. Urine, she has positive urinary tract infection. ASSESSMENT AND PLAN: We will see what physical therapy has to say, if they recommend subacute rehabilitation. Continue with the intravenous antibiotics, check her labs tomorrow, out of bed to chair, physical therapy. Seizure medications and seizure precautions. Natanael Hernandez DO
[2018-07-24] MEDS: Levothyroxine 75 MCG TAB PO SCH (08:51)
--- NOTE | 2018-07-24 11:12 | CP.PCM.PN ---
Subjective - Date & Time of Evaluation Date of Evaluation: 07/24/18 Time of Evaluation: 10:25 - Subjective Subjective: Not in distress, afebrile. Objective - Vital Signs/Intake and Output Vital Signs (last 24 hours): Temp Pulse Resp BP Pulse Ox 98.1 F 66 18 113/63 96 07/23/18 06:00 07/23/18 06:00 07/23/18 06:00 07/23/18 06:00 07/23/18 06:00 Intake and Output: 07/23/18 07/23/18 06:59 18:59 Intake Total 600 Balance 600 - Medications Medications: Current Medications Aspirin (Ecotrin) 81 mg PO DAILY [facility] Last Admin: 07/23/18 10:06 Dose: 81 mg Atorvastatin Calcium (Lipitor) 20 mg PO HS [facility] Last Admin: 07/22/18 23:40 Dose: 20 mg Ampicillin 500 mg/ Sodium (Chloride) 100 mls @ 200 mls/hr IVPB Q6 [facility]; Protocol Last Admin: 07/23/18 05:01 Dose: 200 mls/hr Lamotrigine (Lamictal) 200 mg PO TID [facility] Last Admin: 07/23/18 10:07 Dose: 200 mg Levetiracetam (Keppra) 1,000 mg PO TID [facility] Last Admin: 07/23/18 10:06 Dose: 1,000 mg Levothyroxine Sodium (Synthroid) 75 mcg PO ACB BERRY Last Admin: 07/23/18 10:09 Dose: 75 mcg Lorazepam (Ativan) 1 mg PO TID [facility]; Protocol Last Admin: 07/23/18 10:07 Dose: 1 mg Lorazepam (Ativan) 0.5 mg IVP Q6H PRN; Protocol PRN Reason: Anxiety Last Admin: 07/23/18 12:17 Dose: 0.5 mg Metoprolol Tartrate (Lopressor) 25 mg PO BID [facility] Last Admin: 07/23/18 10:07 Dose: 25 mg Olanzapine (Zyprexa) 2.5 mg PO BID [facility]; Protocol Last Admin: 07/23/18 10:10 Dose: 2.5 mg Paroxetine HCl (Paxil) 10 mg PO HS [facility] Raloxifene HCl (Evista) 60 mg PO DAILY [facility] Last Admin: 07/23/18 10:10 Dose: 60 mg - Labs Labs: 07/23/18 06:10 07/23/18 06:10 - Constitutional Appears: Chronically Ill - Head Exam Head Exam: NORMAL INSPECTION - Respiratory Exam Respiratory Exam: Decreased Breath Sounds - Cardiovascular Exam Cardiovascular Exam: +S1, +S2 - GI/Abdominal Exam GI & Abdominal Exam: Soft. absent: Tenderness Assessment and Plan - Assessment and Plan (Free Text) Plan: Assessment UTI with Enterococcus bipolar disorder seizure disorder HTN osteoporosis Plan continue Ampicillin for 3-5 more days continue to monitor clinically
--- NOTE | 2018-07-24 15:06 | PN ---
DATE: 07/24/2018 SUBJECTIVE: She is resting in bed. She wants to go back to the [facility]. She is being seen by Infectious Disease and Neurology. No seizures in the past 24 hours. She is on ampicillin for UTI, Ativan, Ecotrin, Evista, Keppra, Lamictal, Lipitor, Lopressor, Paxil, Synthroid and Zyprexa. My goal is to get her back to the [facility] hopefully by tomorrow. She is eating okay. She is still in bed, I got to get her out of bed to chair. PHYSICAL EXAMINATION VITAL SIGNS: She has a 97.8 temperature, pulse went up to 114, it was low 75; blood pressure is 149/84, 18 respiratory rate and 99% O2 sat on room air. We will keep an eye on her pulse. HEENT: Head is atraumatic and normocephalic. HEART: Regular rate. LUNGS: Decreased breath sounds, but clear. ABDOMEN: Soft. EXTREMITIES: No edema. No other complaints. LABORATORY DATA: A 6.8 white count, 13.5 hemoglobin and 197 platelets. A 140 sodium, potassium 4.1, BUN 30, creatinine 0.7, GFR greater than is 60, sugar 77, calcium is 9.7, total bili is 0.6, AST is 38, ALT , alk phos 63 and total protein 6.9. She has a UTI, on IV antibiotics. Neurology said there is not much what they can do. She was seen by Psychiatry also. My goal is to change the tablets tomorrow, Wednesday and discharge her back to the [facility]. Hopefully get out of bed to chair, physical therapy and no more seizures. Natanael Hernandez DO MTDD
--- NOTE | 2018-07-24 19:11 | CON ---
DATE: 07/24/2018 HISTORY OF PRESENT ILLNESS: The patient is a 72-year-old female with a history of bipolar disorder, ATIF, and seizure disorder who is being followed by the psychiatric team on the medical floor due to altered mental status and she has generally been difficult to maintain a productive interview was due to her current medical issues, which likely as a contribution of dementia and delirium. I have been unable to participate in a productive interview yesterday or today and her progress continues to be poor. She is internally preoccupied of the related and paranoid. She does not look like she is actively hallucinating; however, she is logical and disorganized. She remains danger to herself due to her impaired insight and judgment. RELEVANT PSYCHIATRIC MEDICATIONS: Includes Zyprexa 2.5 b.i.d., Ativan 0.5 every 6 hours p.r.n., and Ativan 1 mg t.i.d. IMPRESSION: Likely dementia with psychotic symptoms as well as delirium due to urinary tract infection. RECOMMENDATIONS: It is unclear why Zyprexa was continued not Seroquel; however, this provider will restart Seroquel at night, d/c zyprexa and decrease ativan as this can contribute to disorientation, disinhibition, and confusion in the elderly. Psychiatry will continue to follow up. Beth Gamez MD DEDRA
[2018-07-24 21:01] LABS: HEMOGLOBIN 13.7 g/dL (12.0-16.0); MEAN CELL VOLUME 93.8 fl (80.0-105.0); MEAN CORPUSCULAR HEMOGLOBIN 31.7 pg (25.0-35.0); MEAN CORPUSCULAR HGB CONC 33.8 g/dl (31.0-37.0); RBC 4.32 10^6/uL (3.5-6.1); RED CELL DISTRIBUTION WIDTH 12.5 % (11.5-14.5); WHITE BLOOD COUNT 7.2 10^3/uL (4.5-11.0)
[2018-07-24 21:20] LABS: ALB/GLOB RATIO 1.4 (1.1-1.8); ALBUMIN 4.3 g/dL (3.0-4.8); ALT/SGPT 15 U/L (7-56); AST/SGOT 48 U/L (14-36); BLOOD UREA NITROGEN 9 mg/dL (7-21); CALCIUM 9.4 mg/dL (8.4-10.5); GFR NON-AFRICAN AMERICAN > 60
[2018-07-25 07:57] LABS: HEMOGLOBIN 12.6 g/dL (12.0-16.0); MEAN CELL VOLUME 93.4 fl (80.0-105.0); MEAN CORPUSCULAR HGB CONC 33.2 g/dl (31.0-37.0); MEAN PLATELET VOLUME 9.7 fl (7.0-11.0); RBC 4.07 10^6/uL (3.5-6.1); RED CELL DISTRIBUTION WIDTH 12.7 % (11.5-14.5); WHITE BLOOD COUNT 6.1 10^3/uL (4.5-11.0)
[2018-07-25 08:17] LABS: ALB/GLOB RATIO 1.3 (1.1-1.8); ALBUMIN 3.6 g/dL (3.0-4.8); ALT/SGPT 20 U/L (7-56); AST/SGOT 50 U/L (14-36); BLOOD UREA NITROGEN 8 mg/dL (7-21); CALCIUM 9.2 mg/dL (8.4-10.5); GFR NON-AFRICAN AMERICAN > 60
[2018-07-25] MEDS: Levothyroxine 75 MCG TAB PO SCH (10:20)
--- NOTE | 2018-07-25 12:43 | PN ---
DATE: 07/25/2018 SUBJECTIVE: She is in bed this morning. Yesterday, she was talking. Today, she is not arousable. I tried to move her shoulders. I yelled at her at least for 3 to 5 minutes with the nurse, but he could not arouse her earlier either. I ordered blood cultures, urine cultures. She is on IV ampicillin by ID, that might need to be changed. She has not waken up. PHYSICAL EXAMINATION: VITAL SIGNS: She has a 97.4 temperature, 83 pulse, 140/69 blood pressure, 18 respiratory rate, 100% O2 sat on room air. HEENT: Head is normocephalic and normocephalic. CARDIOPULMONARY: Regular rate. LUNGS: Decreased breath sound, but clear. ABDOMEN: Soft. EXTREMITIES: No edema. LABORATORY DATA: She has 6.1 white count, 12.6 hemoglobin, 38 hematocrit with 192 platelets. Sodium 141, potassium 3.6, BUN is 8, creatinine 0.5. GFR is greater than 60. Sugar is 92, calcium is 9.2, total bilirubin is 0.68, AST is 50, ALT is 20, alkaline phosphatase 63, troponin is 6.5. MEDICATIONS: She is currently on ampicillin IV. She did get some Ativan IV, may be that is knocking her out. I will continue her on Evista, Keppra, Lamictal, Lopressor, Paxil, Seroquel, Synthroid. ASSESSMENT AND PLAN: See what the culture in the urine and the blood ID and Psychiatry had to say and Neurology. I might discontinue the Ativan. The patient now has change in mental status. We are doing blood cultures and urine culture. We will what Psychiatry has to say about that. Natanael Hernandez DO
--- NOTE | 2018-07-25 15:01 | CP.PCM.PCO ---
Additional Comments - Additional Comments Additional Comments: UTI, continue antibiotics as per ID, repeat UA/UC pending prior UC contaminated, BC pending result, repeat labs in am, reeval in am.
--- NOTE | 2018-07-25 20:28 | CON ---
DATE: 07/25/2018 HISTORY OF PRESENT ILLNESS: The patient is a 72-year-old female with a history of bipolar disorder, ATIF, and seizure disorder who is being followed by the psychiatric team on the medical floor due to altered mental status. This provider met with her on Wednesday and Wednesday and again on Wednesday today and it has been generally very difficult to maintain productive interview with her due to her current mentation, which is confused and disoriented due to combination of dementia and delirium. I have been unable to participate in a meaningful interview with the patient and her progress continues to be poor. She is internally preoccupied, poorly related and paranoid, though she does not look like she is actively hallucinating. She does have notably fluctuating levels of consciousness and focus and ability to distinguish reality. She remains danger to herself due to insight and judgment. RELEVANT PSYCHIATRIC MEDICATIONS: Include Ativan 0.5 every 6 hours p.r.n., Ativan 1 mg a.m. and at bedtime, Paxil 10 mg at bedtime, and Seroquel 25 mg at bedtime. IMPRESSION: Dementia, most likely delirium due to the patient's worsening and fluctuating mentation (secondary to UTI) on the medical floor. RECOMMENDATIONS: At this time, we will split Seroquel from 25 to 12.5 at bedtime and 12.5 a.m. to increase the patient's alertness during the day and we will continue with other medications. We will continue to trying to taper the Ativan as noted in prior consults, this can contribute to her disinhibition and confusion as well. Psychiatry will continue to follow. Beth Gamez MD DEDRA
--- NOTE | 2018-07-26 04:39 | PN ---
DATE: 07/25/2018 SUBJECTIVE: The patient is in bed, in no acute distress. Nontoxic. PHYSICAL EXAMINATION: VITAL SIGNS: Temperature is 98, blood pressure is 160/70, and respiratory rate of 18. HEENT: Unremarkable. NECK: Supple. LUNGS: Decreased breath sounds. HEART: Normal S1 and S2. ABDOMEN: Soft. LABORATORY DATA: Reveals a white count of 6.1. Chemistries are noted. Microbiology is reviewed. Review of orders reveals the patient to be on ampicillin. ASSESSMENT AND PLAN: This is a 72-year-old female, seen earlier today in [facility], bed 2 with Enterococcus urinary tract infection, on ampicillin. We will follow with you. David العراقي MD
--- NOTE | 2018-07-26 09:35 | PN ---
DATE: 07/26/2018 SUBJECTIVE: I am waiting for her to wake up. This is the second day in a row I could not arouse her. At least no seizures in the past 3 days, now she is out of it. MEDICATIONS: She is on ampicillin Ativan, Ecotrin, Evista, Keppra, Lamictal, Lipitor, metoprolol, Paxil, Seroquel and Synthroid. PHYSICAL EXAMINATION GENERAL: She is not arousable to me this morning, I was with the nurse. VITAL SIGNS: She has a 98.6 temperature, 84 pulse, 152/76 blood pressure, 18 respiratory rate, and 100% O2 sat on room air. HEAD: Atraumatic, normocephalic. HEART: Regular rate. LUNGS: With decreased breath sounds. ABDOMEN: Soft. EXTREMITIES: No edema. LABORATORY DATA: She has a white count of 6.1, hemoglobin 12.6, hematocrit 38, platelets are 192. A 141 sodium, potassium 3.6, BUN 8, creatinine 0.5, GFR is greater than 60, sugar is 92, calcium is 9.2. Total bili is 0.6. AST is 50, ALT is 20, alk phos is 63, total protein is 6.5. Urine has many bacteria. ASSESSMENT AND PLAN: She is on ampicillin IV as per Infectious Disease. She is being seen by Infectious Disease and Psychiatry and Neurology. I am waiting for her to wake up. So we will get her back to the skilled nursing. Physical therapy. Natanael Hernandez DO
--- NOTE | 2018-07-26 10:53 | CP.PCM.PCO ---
Addendum Addendum: I visited with patient at bedside. She is deeply sleeping. Patient has been more sedated in the last couple of days. She is also being treated for a UTI with abx. I will decrease seroquel to just 12.5 mg po HS to help with alertness. Psychiatry will continue to f/u and attempt evaluation when patient is more alert. Next f/u 07/27/18. 07/26/18 10:51
[2018-07-26] MEDS: Levothyroxine 75 MCG TAB PO SCH (12:52)
--- NOTE | 2018-07-26 16:16 | PN ---
DATE: 07/26/2018 SUBJECTIVE: The patient is in bed in no acute distress. PHYSICAL EXAMINATION VITAL SIGNS: Temperature is 98, blood pressure is 150/70, respiratory rate of 20, heart rate of 102. HEENT: Unremarkable. NECK: Supple. HEART: Palpable S1, S2. ABDOMEN: Soft. LABORATORY DATA: Reveals the white count of 6.1, hemoglobin of 12. Urinalysis is noted and toxicology is reviewed. Microbiology reveals multiple organisms. Review of orders reveals the patient is on ampicillin.. ASSESSMENT AND PLAN: This is a 72-year-old female who is seen earlier, had enterococcus urinary tract infection with given antibiotics from the 07/19/2018. So, he is being on 8 of antibiotics. We will discontinue the ampicillin for enterococcus urinary tract infection. David العراقي MD
[2018-07-27 08:15] LABS: HEMOGLOBIN 11.9 g/dL (12.0-16.0); MEAN CELL VOLUME 95.8 fl (80.0-105.0); MEAN CORPUSCULAR HEMOGLOBIN 31.6 pg (25.0-35.0); MEAN PLATELET VOLUME 9.9 fl (7.0-11.0); RBC 3.77 10^6/uL (3.5-6.1); WHITE BLOOD COUNT 9.7 10^3/uL (4.5-11.0)
[2018-07-27 09:39] LABS: ALB/GLOB RATIO 1.1 (1.1-1.8); ALBUMIN 3.3 g/dL (3.0-4.8); ALT/SGPT 28 U/L (7-56); AST/SGOT 64 U/L (14-36); BLOOD UREA NITROGEN 14 mg/dL (7-21); CALCIUM 9.4 mg/dL (8.4-10.5); GFR NON-AFRICAN AMERICAN > 60
--- NOTE | 2018-07-27 09:59 | CP.PCM.PCO ---
Addendum Addendum: 07/27/18 09:58 pt is cleared by psychiatric team to go to the [place], with plan to be f/u with psychiatrist within 48-72hrs.
[2018-07-27] MEDS: Levothyroxine 75 MCG TAB PO SCH (10:07)
[2018-07-27 14:28] VITALS: BP 117/58; PULSE 80; RESP 18; TEMP 97.7; O2SAT 100
--- NOTE | 2018-07-27 15:13 | PN ---
DATE: 07/27/2018 SUBJECTIVE: The patient is in bed. No acute distress; nontoxic. PHYSICAL EXAMINATION: VITAL SIGNS: Temperature is 97, blood pressure is 130/70, respiratory rate of 18, and heart rate of 93. HEENT: Unremarkable. NECK: Supple. LUNGS: Decreased breath sounds. HEART: Normal S1 and S2. ABDOMEN: Soft. LABORATORY DATA: Laboratory examination reveals a white count of 9.7. Chemistries are noted. Urinalysis is reviewed. Microbiology reveals blood cultures are negative. Urine cultures; mixed organisms. REVIEW OF ORDERS: Reveals the patient to be on no antibiotics. ASSESSMENT AND PLAN: This is a 72-year-old female seen earlier with Enterococcus urinary tract infection, was given Enterococcus therapy, 8 days of antibiotics. Currently off of antibiotics; afebrile doing well. The patient is at risk for developing nosocomial infection. David العراقي MD
--- NOTE | 2018-07-27 21:28 | PN ---
DATE: 07/27/2018 SUBJECTIVE: The patient was seen today. The patient is lethargic. The patient was not able to participate in interview. Notes reviewed. Labs reviewed. Based on Dr. Johnson's note who was seeing the patient for past 2 days, the patient's medications were changed, Seroquel from 25 mg was changed to 12.5 mg at the bedtime and 12.5 mg at the morning time. Based on nursing note, the patient was not agitated, not aggressive, and was resting in bed comfortably. As per [employer] notes, the patient was accepted in [facility] and the patient is scheduled for transfer to the [facility] today. VITAL SIGNS: Reviewed. Temperature 97.7, pulse 80, blood pressure 117/58, respirations 18, oxygen saturation is 100%. MEDICATIONS: The patient is currently on aspirin, Lipitor, Lamictal 200 mg three times a day, Keppra 1000 mg three times a day, Synthroid, Ativan 0.5 mg IV push every 6 hours p.r.n., last time it was on 07/24/2018, today is 07/27/2018; the patient is also on 0.5 p.o. twice a day and at the night time. Today, the patient is not getting any Ativan. The patient also in on Paxil 10 mg at the night time, Seroquel 12.5 mg at the night time, Evista and thiamin 100 mg. LABORATORY DATA: Reviewed, most recent was from today. Urine analysis showed urinary tract infection. The patient was treated with antibiotics and was seen by Infectious Disease doctor, Dr. العراقي. MENTAL STATUS EXAMINATION: The patient presented to be sleepy, not in any acute distress. The patient is breathing, does not appear to be in any pain or any distress. IMPRESSION: As per history, the patient has bipolar disorder and pseudoseizures versus seizures. PLAN: The patient needs to be seen by psychiatrist in the custodial within 72 hours after discharge. The patient needs to continue all of her psychotropic medications and she needs to continue all antiseizure medication. From the psychiatric stand point, the patient is cleared. The patient posed no imminent danger to self or others. This singer songwriter will advice to contact the patient's power of commission sales associate and let him know what is going on. Should you have any questions, give me a call back. Thank you very much for letting me participate in the care of your patient. Hannah Gomez MD
--- NOTE | 2018-07-28 03:33 | DS ---
HOSPITAL COURSE: She is resting comfortably in bed. She is more alert and talking with me today. I am trying to get her back to [facility] is from. She has another seizures since she has been here. She is on Ativan, Ecotrin, Evista, Lamictal, Lipitor, metoprolol, Paxil, Seroquel, Synthroid, and vitamins. She is eating some, not great. PHYSICAL EXAMINATION: GENERAL: She is alert. VITAL SIGNS: 97.6 temperature, 93 pulse, 135/70 blood pressure, 17 respiratory rate, and 96% O2 saturation on room air. HEENT: Head is atraumatic and normocephalic. HEART: Regular rate. LUNGS: Decreased breath sounds. ABDOMEN: Soft. EXTREMITIES: No edema. ASSESSMENT AND PLAN: Waiting for Psychiatry to give the okay, I believe they send her back to [facility]. I did stop the antibiotics, hopefully she will do well. She had a seizure, urinary tract infection, and change in mental status. She has anxiety. Hopefully, she will do very well. I will follow up at [facility] when she goes there. Natanael Hernandez DO
== END 2018-07-27 21:26 | DRG 101 ==
LOC: ED 10:13 → ERH 12:28 → 5RSO 14:51
PROVIDERS: ADMIT Family Medicine; ATTEND Family Medicine
DX: R56.9 Unspecified convulsions (principal); N39.0 Urinary tract infection, site not specified; F05 Delirium due to known physiological condition; F41.1 Generalized anxiety disorder; F03.90 Unspecified dementia, unspecified severity, without behavioral disturbance, psychotic disturbance, mood disturbance, and anxiety; F31.9 Bipolar disorder, unspecified; I10 Essential (primary) hypertension; E03.9 Hypothyroidism, unspecified; B95.2 Enterococcus as the cause of diseases classified elsewhere; R45.1 Restlessness and agitation; R41.82 Altered mental status, unspecified; M81.0 Age-related osteoporosis without current pathological fracture; Z79.82 Long term (current) use of aspirin